=== PATIENT | male | born 1955 | race Caucasian/White ===

== ENCOUNTER 2023-05-07 14:20 | Outpatient (AMB) | payer MEDICARE, OTHER, SELFPAY ==
--- NOTE | 2023-05-07 14:25 | HO.NEPHOV ---
HPI HPI Comments History of Present Illness Details I had the privilege of seeing Donny in follow-up of his hypertension. He monitors his blood pressure closely at home. He has no headache, visual disturbances, chest pain, shortness of breath, paroxysmal nocturnal dyspnea, orthopnea, pedal edema or orthostatic symptoms. He is compliant with his medications. He has not had any gout exacerbations. He had no recent medication changes either. He did not have any other systemic symptoms at the time of this office visit. [facility] Medical History (Updated 05/14/23 @ 15:34 by Catracho Verma MD) Hypertension Surgical History (Updated 05/07/23 @ 14:34 by Anju Galindo MA) History of tonsillectomy Family History (Updated 05/07/23 @ 14:35 by Anju Galindo MA) Father Stroke Mother Heart attack Social History (Updated 05/07/23 @ 14:34 by Anju Galindo MA) Alcohol intake: current Patient Tobacco Use Status: Former Tobacco user Vital Signs 05/07/23 14:29 Height 6 ft Weight 220 lb 4 oz BMI 29.9 BP 130/70 Blood Pressure Location Rt brachial Position Sitting Pulse 85 Pulse Source Pulse Oximeter Pulse Oximetry (%) 98 Oxygen Delivery Method Room Air Physical Exam Vital Signs: Last Vital Signs Pulse 85 05/07/23 14:29 BP 130/70 05/07/23 14:29 Pulse Ox 98 05/07/23 14:29 Oxygen Delivery Method Room Air 05/07/23 14:29 BMI result Body Mass Index 29.9 Const General: comfortable and no acute distress Orientation/consciousness: patient oriented x3 HEENT Head: Yes normocephalic Mouth: Normal oral and palatal mucosa present Eyes EOM: EOMs intact bilaterally Neck Neck: Yes supple Resp Auscultation: clear to auscultation bilaterally Cardio Jugular venous distension: no JVD Rate: regular rate GI Palpation (GI): Soft to palpation Auscultation: normal bowel sounds General: Yes no CVA tenderness Back/Spine/Pelvis Back: no CVA tenderness Skin General skin exam: no rashes or lesions noted Neuro General: patient oriented x3 and moves all extremities Extrem General: Yes no pedal edema Assessment & Plan Assessment & Plan (1) Hypertension: Code(s): I10 - Essential (primary) hypertension Qualifiers: Hypertension type: primary hypertension Qualified Code(s): I10 - Essential (primary) hypertension Plan Donny has longstanding hypertension and is currently well controlled on current medication regimen. He is tolerating JASMYNE inhibitor well. He maintains a low-sodium diet and is fairly active. His last renal ultrasound along with Doppler of renal arteries were unremarkable. He could continue on the current dose of chlorthalidone, lisinopril and metoprolol. He should maintain good hydration. I have ordered renal functions, electrolytes and uric acid. Medications refilled. All questions answered. Follow-up given. Orders: Orders Blood Urea Nitrogen 05/07/23 I10 - Essential (primary) hypertension Creatinine 05/07/23 I10 - Essential (primary) hypertension Uric Acid 05/07/23 I10 - Essential (primary) hypertension Electrolytes 8 Months I10 - Essential (primary) hypertension Calcium 05/07/23 I10 - Essential (primary) hypertension Electrolytes 05/07/23 I10 - Essential (primary) hypertension Creatinine 8 Months I10 - Essential (primary) hypertension Blood Urea Nitrogen 8 Months I10 - Essential (primary) hypertension Medications: New allopurinol 100 mg PO DAILY 90 days 90 tabs 3RF chlorthalidone 25 mg PO DAILY 90 days 90 tabs 3RF lisinopril 20 mg PO DAILY 90 days 90 tabs 3RF metoprolol succinate ER 25 mg PO DAILY 90 days 90 tabs 3RF allopurinol 300 mg (3 x 100 mg) PO DAILY 90 days 270 tabs 3RF Coding Level of Care Code Est Pt Level 4 (59094) Diagnoses Primary hypertension I10 Hypertension type: primary hypertension Results Reviewed Nephrology Results: Sodium 138 MMOL/L (135-145) 05/17/19 Potassium 5.2 MMOL/L (3.3-5.1) H 05/17/19 Chloride 103 MMOL/L (96-108) 05/17/19 BUN 17 MG/DL (9-16) H 05/17/19 Creatinine 1.02 MG/DL (0.5-1.4) 05/17/19 Calcium 9.9 MG/DL (8.4-10.2) 05/17/19 Phosphorus 3.7 MG/DL (2.7-4.5) 05/17/19 Urine Protein NEG (NEG - TRACE) 05/17/19
[2023-05-07 14:29] VITALS: BP 130/70; PULSE 85; O2SAT 98; BMI 29.9
== END 2023-05-07 15:11 | disposition home or self-care (01) ==
PROVIDERS: Visit Provider Internal Medicine Nephrology
DX: I10 Essential (primary) hypertension (principal)
CPT/HCPCS: 99214

== ENCOUNTER → 2023-05-07 14:20 | Outpatient (BNVA) | payer MEDICARE, OTHER, SELFPAY | PROVIDERS: Visit Provider Internal Medicine Nephrology | DX: I10 Essential (primary) hypertension (principal); Z79.899 Other long term (current) drug therapy | CPT/HCPCS: 99212 ==

== ENCOUNTER 2023-12-22 14:50 | Outpatient (AMB) | payer MEDICARE, OTHER, SELFPAY ==
--- NOTE | 2023-12-22 15:01 | HO.NEPHOV_ITS ---
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 He monitors his blood pressure closely at home. He has no headache, visual disturbances, chest pain, shortness of breath, paroxysmal nocturnal dyspnea, orthopnea, pedal edema or orthostatic symptoms. He is compliant with his medications. He has not had any gout exacerbations. He had no recent medication changes either. He did not have any other systemic symptoms at the time of this office visit. [facility] Medical History (Updated 12/23/23 @ 12:59 by Catracho Verma MD) Hypertension Surgical History History of tonsillectomy Family History Father Stroke Mother Heart attack Social History Alcohol intake: current Patient Tobacco Use Status: Former Tobacco user Review of Systems Const All systems reviewed & are unremarkable except as noted in HPI and below Physical Exam Vital Signs: Last Vital Signs Pulse 74 12/22/23 15:03 BP 120/62 12/22/23 15:03 Pulse Ox 97 12/22/23 15:03 Oxygen Delivery Method Room Air 12/22/23 15:03 BMI result Body Mass Index 29.3 Const General: comfortable and no acute distress Orientation/consciousness: patient oriented x3 HEENT Head: Yes normocephalic Mouth: Normal oral and palatal mucosa present Eyes EOM: EOMs intact bilaterally Neck Neck: Yes supple Resp Auscultation: clear to auscultation bilaterally Cardio Jugular venous distension: no JVD Rate: regular rate GI Palpation (GI): Soft to palpation Auscultation: normal bowel sounds General: Yes no CVA tenderness Back/Spine/Pelvis Back: no CVA tenderness Skin General skin exam: no rashes or lesions noted Neuro General: patient oriented x3 and moves all extremities Extrem General: Yes no pedal edema Assessment & Plan Assessment & Plan (1) Hypertension: Code(s): I10 - Essential (primary) hypertension Category: Medical Qualifiers: Hypertension type: primary hypertension Qualified Code(s): I10 - Essential (primary) hypertension (2) Hyperuricemia: Code(s): E79.0 - Hyperuricemia without signs of inflammatory arthritis and tophaceous disease Category: Medical Plan Donny has longstanding hypertension and is currently well controlled on current medication regimen. He is tolerating JASMYNE inhibitor well. He maintains a low- sodium diet and is fairly active. His last renal ultrasound along with Doppler of renal arteries were unremarkable. He could continue on the current dose of chlorthalidone, lisinopril and metoprolol. He should maintain good hydration. I have ordered renal functions, electrolytes and uric acid. Medications refilled. All questions answered. Follow-up given. Orders: Orders Creatinine 12/22/23 I10 - Essential (primary) hypertension Blood Urea Nitrogen 12/22/23 I10 - Essential (primary) hypertension Electrolytes 12/22/23 I10 - Essential (primary) hypertension Calcium 12/22/23 I10 - Essential (primary) hypertension Uric Acid Today E79.0 - Hyperuricemia without signs of inflammatory arthritis and tophaceous disease Coding Level of Care Code Est Pt Level 4 (31593) Diagnoses Primary hypertension I10 Hypertension type: primary hypertension Hyperuricemia E79.0
[2023-12-22 15:03] VITALS: BP 120/62; PULSE 74; O2SAT 97; BMI 29.3
== END 2023-12-22 15:22 | disposition home or self-care (01) ==
PROVIDERS: Visit Provider Internal Medicine Nephrology
DX: I10 Essential (primary) hypertension (principal); E79.0 Hyperuricemia without signs of inflammatory arthritis and tophaceous disease
CPT/HCPCS: 99214

== ENCOUNTER → 2023-12-22 14:50 | Outpatient (BNVA) | payer MEDICARE, OTHER, SELFPAY | PROVIDERS: Visit Provider Internal Medicine Nephrology | DX: I10 Essential (primary) hypertension (principal); E79.0 Hyperuricemia without signs of inflammatory arthritis and tophaceous disease | CPT/HCPCS: 99212 ==

== ENCOUNTER 2024-08-30 10:31 | Outpatient (AMB) | payer MEDICARE, OTHER, SELFPAY ==
--- NOTE | 2024-08-30 10:53 | HO.NEPHOV ---
Vital Signs 08/30/24 10:58 Height 6 ft Weight 213 lb 6 oz BMI 28.9 BP 132/80 Blood Pressure Location Lt brachial Position Sitting Pulse 81 Pulse Source Pulse Oximeter Pulse Oximetry (%) 98 Oxygen Delivery Method Room Air Intake Visit Reasons: Sooner appt per [place] Nitroglycerin Neutralizer Required: No Accompanied by: Self / Same As Patient Allergies No Known Allergies Allergy (Verified 08/30/24 10:58) HPI Comments Details: Donny was seen in follow-up of his hypertension, recent BENNY and hyperkalemia. He has been having intermittent dizziness with rise in serum K and creatinine. His dizziness has resolved with cutting back on HCTZ and ACEI. He monitors his blood pressure closely at home. He has no headache, visual disturbances, chest pain, shortness of breath, paroxysmal nocturnal dyspnea, orthopnea, pedal edema.He has not had any gout exacerbations and denies taking NSAID's. He has a new diagnosis of enlarged prostate with high PSA.He did not have any other systemic symptoms at the time of this office visit. [facility] Medical History (Updated 08/30/24 @ 22:23 by Catracho Verma MD) Hypertension Surgical History (Updated 08/30/24 @ 10:56 by Anju Galindo MA) H/O tooth extraction H/O eye surgery History of tonsillectomy Family History (Updated 08/30/24 @ 10:56 by Anju Galindo MA) Father Stroke Mother Heart attack Solitary kidney, acquired Social History Alcohol intake: current Patient Tobacco Use Status: Former Tobacco user Review of Systems Const All systems reviewed & are unremarkable except as noted in HPI and below Physical Exam Vital Signs: Last Vital Signs Pulse 81 08/30/24 10:58 BP 132/80 08/30/24 10:58 Pulse Ox 98 08/30/24 10:58 Oxygen Delivery Method Room Air 08/30/24 10:58 BMI result Body Mass Index 28.9 Const General: comfortable and no acute distress Orientation/consciousness: patient oriented x3 HEENT Head: Yes normocephalic Mouth: Normal oral and palatal mucosa present Eyes EOM: EOMs intact bilaterally Neck Neck: Yes supple Resp Auscultation: clear to auscultation bilaterally Cardio Jugular venous distension: no JVD Rate: regular rate GI Palpation (GI): Soft to palpation Auscultation: normal bowel sounds General: Yes no CVA tenderness Back/Spine/Pelvis Back: no CVA tenderness Skin General skin exam: no rashes or lesions noted Neuro General: patient oriented x3 and moves all extremities Extrem General: Yes no pedal edema Results Reviewed Nephrology Results: Hgb 14.0 g/dl (14.0-18.0) 08/30/24 WBC 9.0 X10*3/uL (4.8-10.8) 08/30/24 Plt Count 270 X10*3/uL (160-400) 08/30/24 Sodium 138 mmol/L (135-145) 08/30/24 Potassium 4.7 mmol/L (3.3-5.1) 08/30/24 Chloride 106 mmol/L (96-108) 08/30/24 Carbon Dioxide 24 mmol/L (22-29) 08/30/24 BUN 34 mg/dL (9-16) H 08/30/24 Creatinine 1.37 mg/dL (0.5-1.4) 08/30/24 Calcium 9.9 mg/dL (8.4-10.2) 08/30/24 Phosphorus 3.7 MG/DL (2.7-4.5) 05/17/19 Urine Protein Negative mg/dL (Neg-Trace) 08/30/24 Urine Creatinine 100.79 mg/dL 08/30/24 Protein/Creatinin Ratio 0.09 (<0.2) 08/30/24 Assessment & Plan Assessment & Plan (1) Hypertension: Code(s): I10 - Essential (primary) hypertension Category: Medical Qualifiers: Hypertension type: primary hypertension Qualified Code(s): I10 - Essential (primary) hypertension (2) Hyperuricemia: Code(s): E79.0 - Hyperuricemia without signs of inflammatory arthritis and tophaceous disease Category: Medical (3) BENNY (acute kidney injury): Code(s): N17.9 - Acute kidney failure, unspecified Category: Medical (4) Hyperkalemia: Code(s): E87.5 - Hyperkalemia Category: Medical Plan Donny has longstanding hypertension and may be having mild CKD from it. He recently developed BENNY with hyperkalemia associated with dizziness. He likely had tubular injury. His dizziness has resolved since his HCTZ dose and ACEI dose has been adjusted. Given rise in PSA, we need to R/O hydro . He also needs evaluation of renal arteries. I ordered imaging studies and follow up labs today. He maintains a low-sodium diet and is fairly active. He should maintain good hydration.Further management is pending evolving data. All questions answered. Follow-up given. Orders: Orders Complete Blood Count Auto Diff Today E79.0 - Hyperuricemia without signs of inflammatory arthritis and tophaceous disease, I10 - Essential (primary) hypertension, N17.9 - Acute kidney failure, unspecified Creatinine Today E79.0 - Hyperuricemia without signs of inflammatory arthritis and tophaceous disease, I10 - Essential (primary) hypertension, N17.9 - Acute kidney failure, unspecified Protein Creatinine Ratio, Ur Today E79.0 - Hyperuricemia without signs of inflammatory arthritis and tophaceous disease, I10 - Essential (primary) hypertension, N17.9 - Acute kidney failure, unspecified Ferritin Today E79.0 - Hyperuricemia without signs of inflammatory arthritis and tophaceous disease, I10 - Essential (primary) hypertension, N17.9 - Acute kidney failure, unspecified IRON PROFILE Today E79.0 - Hyperuricemia without signs of inflammatory arthritis and tophaceous disease, I10 - Essential (primary) hypertension, N17.9 - Acute kidney failure, unspecified Electrolytes Today E79.0 - Hyperuricemia without signs of inflammatory arthritis and tophaceous disease, I10 - Essential (primary) hypertension, N17.9 - Acute kidney failure, unspecified Calcium Today E79.0 - Hyperuricemia without signs of inflammatory arthritis and tophaceous disease, I10 - Essential (primary) hypertension, N17.9 - Acute kidney failure, unspecified Blood Urea Nitrogen Today E79.0 - Hyperuricemia without signs of inflammatory arthritis and tophaceous disease, I10 - Essential (primary) hypertension, N17.9 - Acute kidney failure, unspecified Immunofixation Pnl, Serum Today E79.0 - Hyperuricemia without signs of inflammatory arthritis and tophaceous disease, I10 - Essential (primary) hypertension, N17.9 - Acute kidney failure, unspecified UA and rflx microscopic Today E79.0 - Hyperuricemia without signs of inflammatory arthritis and tophaceous disease, I10 - Essential (primary) hypertension, N17.9 - Acute kidney failure, unspecified ANCA Vasculitides Today E79.0 - Hyperuricemia without signs of inflammatory arthritis and tophaceous disease, I10 - Essential (primary) hypertension, N17.9 - Acute kidney failure, unspecified US renal doppler Today N17.9 - Acute kidney failure, unspecified US renal BI Today I10 - Essential (primary) hypertension, N17.9 - Acute kidney failure, unspecified Coding Level of Care Code Est Pt Level 4 (16486) Diagnoses Primary hypertension I10 Hypertension type: primary hypertension Hyperuricemia E79.0 BENNY (acute kidney injury) N17.9 Hyperkalemia E87.5
[2024-08-30 10:58] VITALS: BP 132/80; PULSE 81; O2SAT 98; BMI 28.9
--- OUTSIDE RECORDS SUMMARY | 2024-08-30 12:01 | XMS_ITS | Clinical Summary ---
Author Organization [facility] Address [address] [place] [address] Phone Care Team Providers Care Trauma Coordinator Name Role Phone Madison Perez Primary Care Provider [phone] Allergies No known active allergies Medications allopurinol (ZYLOPRIM) 100 MG tablet Take 2 tablets by mouth 1 (one) time each day Active lisinopril 20 MG tablet Take 1 tablet by mouth daily. 90 tablet 07/21/2021 Active metoprolol succinate XL (TOPROL XL) 25 MG 24 hr tablet Take 1 tablet by mouth once daily. Replaces 50 mg. 90 tablet 1 09/28/2022 Active brimonidine (ALPHAGAN) 0.2 % ophthalmic solution 08/27/2022 Active chlorthalidone 25 MG tablet Take 1 tablet by mouth once daily. 90 tablet 3 11/10/2022 Active Active Problems Problem Noted Date Diagnosed Date Essential hypertension 05/06/2021 Family History Medical History Relation Comments Hypertension Father Stroke Father Gout Mother Heart disease Mother Hypertension Mother Relation Status Comments Father Mother Social History Tobacco Use Types Packs/Day Years Used Date Smoking Tobacco: Never Smokeless Tobacco: Never Tobacco Cessation:Counseling Given: Not Answered Alcohol Use Standard Drinks/Week Comments Yes 0 (1 standard drink = 0.6 oz pure alcohol) Alcoholic Drinks/day: Occasional social drink Sex and Gender Information Value Date Recorded Sex Assigned at Not on file Legal Sex Male 5:07 PM EST Gender Identity Not on file Sexual Orientation Not on file Last Filed Vital Signs Vital Sign Reading Time Taken Comments Blood Pressure 110/70 10/07/2022 3:42 PM EDT Pulse 74 10/07/2022 3:42 PM EDT Temperature - - Respiratory Rate - - Oxygen Saturation 98% 10/01/2021 4:26 PM EDT Inhaled Oxygen Concentration - - Weight 98.4 kg (217 lb) 10/07/2022 3:42 PM EDT Height 182.9 cm (6') 05/17/2020 12:00 PM EST Body Mass Index 29.43 05/17/2020 12:00 PM EST Plan of Treatment Health Maintenance Due Date Last Done Comments Pneumococcal Vaccine: 50+ Ye ars (1 of 2 - PCV) 07/26/1975 Colorectal Cancer Screening: Annual FOBT 2005 Colorectal Cancer Screening: Colonoscopy 2005 Colorectal Cancer Screening: Sigmoidoscopy 2005 Influenza Vaccine (Season Ended) 2024 Hepatitis B Vaccine Aged Out No longe r eligible based on patient's age to complete this topic Insurance [facility] Medicare [facility] Medicare Care Teams Trauma Coordinator Relationship Specialty Start Date End Date Madison Perez [address] [place] [id number] PCP - General 10/01/21
--- OUTSIDE RECORDS SUMMARY | 2024-08-30 12:01 | XMS_ITS | Data Portability ---
Author Organization [facility], , [facility] Address [address] [place] [address] Care Team Providers Care Speech Therapist Early Intervention Name Role Phone ROMY MIN [employer] Customer Experience Associate CASSIE AGUILAR Primary Care Provider Assessment Encounter Date Assessment Date Assessment LastModified by Organization Details LastModified Time 03/23/2022 03/23/2022 After a discussion of treatment options, which included consideration of best practices and patient preferences, the following treatment plan and objectives were adopted: Not available 03/29/2022 18:49:28 09/30/2022 09/30/2022 After a discussion of treatment options, which included consideration of best practices and patient preferences, the following treatment plan and objectives were adopted: Not available 10/07/2022 08:48:15 05/16/2024 05/16/2024 We completed your Medicare Wellness exam today. This was an opportunity to assess your overall well being including your ability to care for yourself, your mobility, memory, mental health, as well as your safety. With advancing age, it is important to assign someone in your life as your Health Care Proxy (HCP). This person should know what is important to you and what your wishes are for medical procedures if you cannot communicate your wishes yourself (severe illness, unconsciousness) . We discussed having a completed Health Care Proxy form today. In addition, today we started a conversation about your End of Life wishes. These conversations will continue over the years. Please consider reading the book, Being Mortal by Mike Dobbs to help frame future conversations. We discussed the purpose of a MOLST form (Medical Orders for Life Sustaining Treatment) and completed this form if appropriate per your wishes. Vision and Hearing are senses that are critically important as we age. When impaired, they can contribute to memory loss, falls, and make it harder to drive, talk to family and friends, and engage in the world. Please get your vision checked yearly and your hearing checked when you start to notice hearing loss. We discussed approaches to lowering your risk of heart disease and stroke . Your blood pressure is at goal. Your cholesterol is higher than goal, work on eating more fruits and vegetables and avoiding saturated fats. We discussed cancer screening you may need as well as vaccines to prevent infections. Colon Cancer : Your risk of colon cancer is average. Due for colorectal screenin. If you are not planning to Prostate Cancer : PSA testing for ages 55-69 risks and benefits discussed test ordered. Influenza Vaccine : Flu shot yearly. Tetanus Vaccine : Every 10 years. Due: 2025. The following vaccines are available from your pharmacy: Pneumonia Vaccine : PCV20: once after age 65. Shingles Vaccine : 2 shots after age 50. Covid Vaccine : Make sure you have received the most up to date covid vaccine. [email or web address] Not available 05/17/2024 09:10:19 08/15/2024 08/15/2024 We reviewed your chronic medical conditions and updated your plan for management. Please review instructions below. We have discussed your personal goals and discussed how to reach your goals. Please reach out to us via the Portal or phone if you have questions about your chronic conditions or if you or your caregivers require assistance in meeting your goals. Please visit our website [email or web address] for more patient resources. As part of your care plan, we will help coordinate your ongoing medical needs, arrange for durable medical equipment, renew prescriptions and necessary prior authorizations, facilitate getting referrals and collaborating with specialist, referrals for VNA services. [email or web address] Not available 08/15/2024 08:58:30 Plan of Treatment Reminders Order Date Submit Date Provider Last Modified By Organization Details Last Modified Time Details Appointments LAB Follow-Up 2024 08:35A M [facility] Lab Not available Not available Not available [place] [facility], 15 2024 10:30A M Romy Min MD Not available Not available Not available [facility] t 30 2024 08:30A M PARASH PIJAR, DNP Not available Not available Not available Lab uric acid, serum or plasma 2024 025 [facility], [address] [place] [address], [id number], 08/15/2024 14:58:18 lipid panel, serum 2024 [facility], [address] [place] [address], [id number], 08/15/2024 08:58:59 CMP, serum or plasma 2024 025 [facility], [address] [place] [address], [id number], 08/15/2024 14:58:17 CMP, serum or plasma 2024 025 [facility], [address] [place] [address], [id number], 08/09/2024 11:56:42 PSA, serum or plasma 2024 025 [facility], [address] [place] [address], [id number], 08/09/2024 10:40:16 uric acid, serum or plasma 2024 025 [facility], [address] [place] [address], [id number], 08/09/2024 11:56:43 lipid panel, serum 2024 025 [facility], [address] [place] [address], [id number], 08/09/2024 11:56:43 Referral None recorded. Procedures None recorded. Surgeries None recorded. Imaging US, abdominal aorta 2021 023 [facility] (Im[facility]), [address], [place], [id number], 04/21/2022 09:23:34 Medication Orders atorvasta tin 20 mg tablet 2024 025 [facility], [address], [place], [place], [id number], 05/16/2024 12:09:04 sildenafi l 50 mg tablet 2023 024 [facility], [address], [place], [place], [id number], 11/16/2023 13:40:46 Patient TargetsNo targets recorded. Patient Instructions Encounter Date Encounter Id Patient Instructions Last Modified By Organization Details Last Modified Time 03/23/2022 [id number] high cholesterol lifestyle changes Not available 03/29/2022 18:49:45 preventing falls : care instructions Not available 03/29/2022 18:49:45 hearing loss: care instructions Not available 03/29/2022 18:49:45 advance directives: care instructions Not available 03/29/2022 18:49:45 well visit, over 65: care instructions Not available 03/29/2022 18:49:45 Prostate Cancer Screening using PSA was discussed. The U.S. Preventive Services Task Force advises not to make a PSA test a part of the standard exam for men ages 55-69. Instead they recommend the uncertainties about the test be discussed and ordered only if a patient still wants it. Over their lifetimes as many as 50% or more of men will develop prostate cancer but only 2% of men will of prostate cancer. For men who chose to be screened for prostate cancer if 1000 men are screened with a psa test over a 15 year period there might be 1-2 deaths prevented however 235 men will have a biopsy with risk of infection, bleeding and Pain, 100 men will have their prostate removed by surgery or radiation treatments and 60-70 of those will suffer incontinence or impotence. There is also the risk of anesthesia or radiation complications. For men over 70 prostate cancer screening offered no benefit and risked pain, worry, expense and possibly shorter life expectancy. [email or web address] Not available 03/23/2022 09:13:01 09/30/2022 [id number] Prostate Cancer Screening using PSA was discussed. The U.S. Preventive Services Task Force advises not to make a PSA test a part of the standard exam for men ages 55-69. Instead they recommend the uncertainties about the test be discussed and ordered only if a patient still wants it. Over their lifetimes as many as 50% or more of men will develop prostate cancer but only 2% of men will of prostate cancer. For men who chose to be screened for prostate cancer if 1000 men are screened with a psa test over a 15 year period there might be 1-2 deaths prevented however 235 men will have a biopsy with risk of infection, bleeding and Pain, 100 men will have their prostate removed by surgery or radiation treatments and 60-70 of those will suffer incontinence or impotence. There is also the risk of anesthesia or radiation complications. For men over 70 prostate cancer screening offered no benefit and risked pain, worry, expense and possibly shorter life expectancy. [email or web address] Not available 09/30/2022 15:31:18 05/16/2024 [id number] well visit, over 65: care instructions [email or web address] Not available 05/17/2024 09:11:33 08/15/2024 [id number] CCM: The provider and patient discussed the Chronic Care Management program, including the services provided, and any fees associated with them. [email or web address] Not available 08/29/2024 09:00:14 Reason for Referral None Reported. Results Created Date Observation Date Name Description Value Unit Range Abnormal Flag Note LastModifiedBy Organization Detail LastModifiedTime 03/19/20 22 03/20/2022 HGB A1C hemoglobin A1C 5.7 % 4.8-6. 0 Goal: <7% in Patie nts with Diabe josiane An A1c betwe en 5.7-6 .4% is ident ified as pre-d iabet es and sugge sts risk for progr essio n to diabe josiane Two a1c value s of 6.5% or highe r is consi stent with a diagn osis of diabe josiane but may need furth er confi rmati on Not Available [facility] [address], [place], [address], 03/20/2022 09:44:50 03/19/20 22 03/20/2022 HGB A1C estimated average glucose 116.9 mg/dL Not Available [address], [address], 03/20/2022 09:44:50 03/19/20 22 03/20/2022 MICRO ALBUM IN/CR EATIN INE RATIO PANEL , URINE microalbumin 6.9 mg/L 1.3-20 .0 Not Available [address], [address], 03/20/2022 13:14:40 03/19/20 22 03/20/2022 MICRO ALBUM IN/CR EATIN INE RATIO PANEL , URINE creatinine urine 112.0 mg/dL 30.0-1 25.0 Not Available [address], [address], 03/20/2022 13:14:40 03/19/20 22 03/20/2022 MICRO ALBUM IN/CR EATIN INE RATIO PANEL , URINE microalb/cre at ratio 6.2 mg/g_ creat 0.0-29 .0 Not Available [address], [address], 03/20/2022 13:14:40 03/19/20 22 03/23/2022 COMP. METAB OLIC PANEL glucose 88 mg/dL 70-100 Not Available [address], [address], 03/23/2022 10:26:00 03/19/20 22 03/23/2022 COMP. METAB OLIC PANEL BUN 34 mg/dL 7-18 high Not Available [address], [address], 03/23/2022 10:26:00 03/19/20 22 03/23/2022 COMP. METAB OLIC PANEL creatinine 1.3 mg/dL 0.8-1. 3 Not Available [address], [address], 03/23/2022 10:26:00 03/19/20 22 03/23/2022 COMP. METAB OLIC PANEL B/C 26.2 ratio Not Available [address], [address], 03/23/2022 10:26:00 03/19/20 22 03/23/2022 COMP. METAB OLIC PANEL GFR >=60ML /MIN mL/mi n normal >=60m L/min - Alfreda l or midly reduc ed <60mL /min- Decre ased kidne y funct ion <15mL /min - Kidne y failu re [facility] calcu lates estim ated Glome rular Filtr ation Rate (eGFR ) using the Chron ic Kidne y Disea se Epide miolo gy Colla borat ion (CKD- EPI) Equat ion (Chuck tay et. al 2020) as recom arlet d by the Natio nal Kidne y Found ation . eGFR is based on age, serum creat inine , and sex. CKD-E PI does not calcu late eGFR by race, does not apply to child jose martin (age <18 years ), and shoul d not be used in pregn giovanna. Not Available [address], [address], 03/23/2022 10:26:00 03/19/20 22 03/23/2022 COMP. METAB OLIC PANEL sodium 136 mmol/ L 136-14 5 Not Available [address], [address], 03/23/2022 10:26:00 03/19/20 22 03/23/2022 COMP. METAB OLIC PANEL potassium 4.8 mmol/ L 3.5-5. 1 Not Available [address], [address], 03/23/2022 10:26:00 03/19/20 22 03/23/2022 COMP. METAB OLIC PANEL chloride 99 mmol/ L 96-107 Not Available [address], [address], 03/23/2022 10:26:00 03/19/20 22 03/23/2022 COMP. METAB OLIC PANEL anion gap 6.5 5.0-15 .0 Not Available [address], [address], 03/23/2022 10:26:00 03/19/20 22 03/23/2022 COMP. METAB OLIC PANEL CO2 31 mmol/ L 21-32 Not Available [address], [address], 03/23/2022 10:26:00 03/19/20 22 03/23/2022 COMP. METAB OLIC PANEL calcium 9.5 mg/dL 8.5-10 .3 Not Available [address], [address], 03/23/2022 10:26:00 03/19/20 22 03/23/2022 COMP. METAB OLIC PANEL total protein 6.8 g/dL 6.4-8. 2 Not Available [address], [address], 03/23/2022 10:26:00 03/19/20 22 03/23/2022 COMP. METAB OLIC PANEL albumin 4.3 g/dL 3.4-5. 0 Not Available [address], [address], 03/23/2022 10:26:00 03/19/20 22 03/23/2022 COMP. METAB OLIC PANEL globulin 2.5 g/dL Not Available [address], [address], 03/23/2022 10:26:00 03/19/20 22 03/23/2022 COMP. METAB OLIC PANEL A/G 1.7 ratio 0.8-2. 0 Not Available [address], [address], 03/23/2022 10:26:00 03/19/20 22 03/23/2022 COMP. METAB OLIC PANEL total bilirubin 0.60 mg/dL 0.00-1 .00 Not Available [address], [address], 03/23/2022 10:26:00 03/19/20 22 03/23/2022 COMP. METAB OLIC PANEL AST 31 U/L 0-37 Not Available [address], [address], 03/23/2022 10:26:00 03/19/20 22 03/23/2022 COMP. METAB OLIC PANEL ALT 35 U/L 6-63 Not Available [address], [address], 03/23/2022 10:26:00 03/19/20 22 03/23/2022 COMP. METAB OLIC PANEL alk. phos. 81 U/L 50-136 Not Available [address], [address], 03/23/2022 10:26:00 03/19/20 22 03/23/2022 LIPID PANEL cholesterol 183 mg/dL <200 mg/dl Aminah able 200-2 39 mg/dl Borde rline High >240 mg/dl High Not Available [address], [address], 03/23/2022 10:26:01 03/19/20 22 03/23/2022 LIPID PANEL triglyceride s 173 mg/dL <150 mg/dL Alfreda l 150-1 99 mg/dL Borde rline High 200-4 99 mg/dL High >500 mg/dL Very High Not Available [address], [address], 03/23/2022 10:26:01 03/19/20 22 03/23/2022 LIPID PANEL direct HDL 47 mg/dL <40 mg/dl - Major Risk for CHD >60 mg/dl - Negat re Risk for CHD Not Available [address], [address], 03/23/2022 10:26:01 03/19/20 22 03/23/2022 URIC ACID uric acid 7.2 mg/dL 3.5-7. 2 Not Available [address], [address], 03/23/2022 10:26:02 03/19/20 22 03/23/2022 LDL - CALCU LATED LDL - calculated 101.4 RISK CATEG ORY LDL GOAL _ CHD or CHD Risk Equiv alent s <100 mg/dl (10-y ear risk >20%) 2+ Risk Facto rs <130 mg/dl (10-y ear risk <= 20%) 0-1 Risk Facto r? <160 mg/dl ? Almos t all peopl e with 0-1 risk facto r have a 10 year risk <10%, thus 10 year risk asses ment in peopl e with 0-1 risk facto r is not connor katheryn. Not Available [address], [address], 03/23/2022 10:26:03 09/19/19 23 09/18/2022 RENAL PANEL glucose 115 mg/dL 70-100 high Not Available [address], [address], 09/18/2022 15:07:30 09/19/19 23 09/18/2022 RENAL PANEL BUN 27 mg/dL 7-18 high Not Available [address], [address], 09/18/2022 15:07:30 09/19/19 23 09/18/2022 RENAL PANEL creatinine 1.3 mg/dL 0.8-1. 3 Not Available [address], [address], 09/18/2022 15:07:30 09/19/19 23 09/18/2022 RENAL PANEL B/C 20.8 ratio Not Available [address], [address], 09/18/2022 15:07:30 09/19/19 23 09/18/2022 RENAL PANEL GFR >=60ML /MIN mL/mi n normal >=60m L/min - Alfreda l or midly reduc ed <60mL /min- Decre ased kidne y funct ion <15mL /min - Kidne y failu re [facility] calcu lates estim ated Glome rular Filtr ation Rate (eGFR ) using the Chron ic Kidne y Disea se Epide miolo gy Colla borat ion (CKD- EPI) Equat ion (Chuck r et. al 2020) as recom arlet d by the Natio nal Kidne y Found ation . eGFR is based on age, serum creat inine , and sex. CKD-E PI does not calcu late eGFR by race, does not apply to child jose martin (age <18 years ), and shoul d not be used in pregn giovanna. Not Available [address], [address], 09/18/2022 15:07:30 09/19/19 23 09/18/2022 RENAL PANEL sodium 138 mmol/ L 136-14 5 Not Available [address], [address], 09/18/2022 15:07:30 09/19/19 23 09/18/2022 RENAL PANEL potassium 5.1 mmol/ L 3.5-5. 1 Not Available [address], [address], 09/18/2022 15:07:30 09/19/19 23 09/18/2022 RENAL PANEL chloride 101 mmol/ L 96-107 Not Available [address], [address], 09/18/2022 15:07:30 09/19/19 23 09/18/2022 RENAL PANEL anion gap 10.4 5.0-15 .0 Not Available [address], [address], 09/18/2022 15:07:30 09/19/19 23 09/18/2022 RENAL PANEL CO2 27 mmol/ L 21-32 Not Available [address], [address], 09/18/2022 15:07:30 09/19/19 23 09/18/2022 RENAL PANEL calcium 9.3 mg/dL 8.5-10 .3 Not Available [address], [address], 09/18/2022 15:07:30 09/19/19 23 09/18/2022 RENAL PANEL albumin 4.2 g/dL 3.4-5. 0 Not Available [address], [address], 09/18/2022 15:07:30 09/19/19 23 09/18/2022 RENAL PANEL phosphorous 3.20 mg/dL 2.50-4 .90 Not Available [address], [address], 09/18/2022 15:07:30 09/19/19 23 09/19/2022 PROTE IN, TOTAL W/CRE AT, RANDO M URINE creatinine, random urine 89 mg/dL 20-320 normal Not Available [facility] [address], [address], 09/19/2022 19:37:30 09/19/19 23 09/19/2022 PROTE IN, TOTAL W/CRE AT, RANDO M URINE protein/crea tinine ratio 124 mg/g_ creat 25-148 normal Not Available [facility] [address], [address], 09/19/2022 19:37:30 09/19/19 23 09/19/2022 PROTE IN, TOTAL W/CRE AT, RANDO M URINE protein/crea tinine ratio 0.124 mg/mg _crea t 0.025- 0.148 normal Not Available [facility] [place] [facility] [address], [place], [address], 09/19/2022 19:37:30 09/19/19 23 09/19/2022 PROTE IN, TOTAL W/CRE AT, RANDO M URINE protein, total, random ur 11 mg/dL 5-25 normal Not Available [facility] [place] [facility] [address], [place], [address], 09/19/2022 19:37:30 09/19/19 23 09/21/2022 LIPID PANEL cholesterol 205 mg/dL <200 mg/dl Aminah able 200-2 39 mg/dl Borde rline High >240 mg/dl High Not Available [address], [address], 09/21/2022 09:53:40 09/19/1909/21/2022 LIPID PANEL triglyceride s 273 mg/dL high <150 mg/dL Alfreda l 150-1 99 mg/dL Borde rline High 200-4 99 mg/dL High >500 mg/dL Very High Not Available [address], [address], 09/21/2022 09:53:40 09/19/1909/21/2022 LIPID PANEL direct HDL 44 mg/dL <40 mg/dl - Major Risk for CHD >60 mg/dl - Negat re Risk for CHD Not Available [address], [address], 09/21/2022 09:53:40 09/19/1909/21/2022 DIREC T LDL direct LDL 113 mg/dL RISK CATEG ORY LDL GOAL _ CHD or CHD Risk Equiv alent s <100 mg/dl (10-y ear risk >20%) 2+ Risk Facto rs <130 mg/dl (10-y ear risk <= 20%) 0-1 Risk Facto r? <160 mg/dl ? Almos t all peopl e with 0-1 risk facto r have a 10 year risk <10%, thus 10 year risk asses ment in peopl e with 0-1 risk facto r is not connor cernay. Not Available [address], [address], 09/21/2022 12:23:59 04/30/19 24 04/30/2023 HGB A1C hemoglobin A1C 6.0 % 4.8-6. 0 Goal: <7% in Patie nts with Diabe josiane An A1c betwe en 5.7-6 .4% is ident ified as pre-d iabet es and sugge sts risk for progr essio n to diabe josiane Two a1c value s of 6.5% or highe r is consi stent with a diagn osis of diabe josiane but may need furth er confi rmati on Not Available [address], [address], 04/30/2023 11:07:53 04/30/19 24 04/30/2023 HGB A1C estimated average glucose 125.5 mg/dL Not Available [address], [address], 04/30/2023 11:07:53 04/30/19 24 04/30/2023 BASIC METAB OLIC PANEL glucose 110 mg/dL 70-100 high Not Available [address], [address], 04/30/2023 14:12:23 04/30/19 24 04/30/2023 BASIC METAB OLIC PANEL BUN 28 mg/dL 7-18 high Not Available [address], [address], 04/30/2023 14:12:23 04/30/19 24 04/30/2023 BASIC METAB OLIC PANEL creatinine 1.4 mg/dL 0.8-1. 3 high Not Available [address], [address], 04/30/2023 14:12:23 04/30/19 24 04/30/2023 BASIC METAB OLIC PANEL B/C 20.0 ratio Not Available [address], [address], 04/30/2023 14:12:23 04/30/19 24 04/30/2023 BASIC METAB OLIC PANEL GFR 55.4 mL/mi n abnormal >=60m L/min - Alfreda l or midly reduc ed <60mL /min- Decre ased kidne y funct ion <15mL /min - Kidne y failu re [facility] calcu lates estim ated Glome rular Filtr ation Rate (eGFR ) using the Chron ic Kidne y Disea se Epide miolo gy Colla borat ion (CKD- EPI) Equat ion (Chuck tay et. al 2020) as recom arlet d by the Natio nal Kidne y Found ation . eGFR is based on age, serum creat inine , and sex. CKD-E PI does not calcu late eGFR by race, does not apply to child jose martin (age <18 years ), and shoul d not be used in pregn giovanna. Not Available [address], [address], 04/30/2023 14:12:23 04/30/19 24 04/30/2023 BASIC METAB OLIC PANEL sodium 136 mmol/ L 136-14 5 Not Available [address], [address], 04/30/2023 14:12:23 04/30/19 24 04/30/2023 BASIC METAB OLIC PANEL potassium 5.0 mmol/ L 3.5-5. 1 Not Available [address], [address], 04/30/2023 14:12:23 04/30/19 24 04/30/2023 BASIC METAB OLIC PANEL chloride 100 mmol/ L 96-107 Not Available [address], [address], 04/30/2023 14:12:23 04/30/19 24 04/30/2023 BASIC METAB OLIC PANEL anion gap 8.6 5.0-15 .0 Not Available [address], [address], 04/30/2023 14:12:23 04/30/19 24 04/30/2023 BASIC METAB OLIC PANEL CO2 27 mmol/ L 21-32 Not Available [address], [address], 04/30/2023 14:12:23 04/30/19 24 04/30/2023 BASIC METAB OLIC PANEL calcium 9.7 mg/dL 8.5-10 .3 Not Available [address], [address], 04/30/2023 14:12:23 04/30/19 24 04/30/2023 URIC ACID uric acid 6.1 mg/dL 3.5-7. 2 Not Available [address], [address], 04/30/2023 14:12:24 05/05/19 24 05/06/2023 PROTE IN, TOTAL W/CRE AT, RANDO M URINE creatinine, random urine 98 mg/dL 20-320 normal Not Available [facility] [address], [address], 05/06/2023 16:23:30 05/05/19 24 05/06/2023 PROTE IN, TOTAL W/CRE AT, RANDO M URINE protein/crea tinine ratio 112 mg/g_ creat 25-148 normal Not Available [facility] [address], [address], 05/06/2023 16:23:30 05/05/19 24 05/06/2023 PROTE IN, TOTAL W/CRE AT, RANDO M URINE protein/crea tinine ratio 0.112 mg/mg _crea t 0.025- 0.148 normal Not Available [facility] [address], [place], [address], 05/06/2023 16:23:30 05/05/19 24 05/06/2023 PROTE IN, TOTAL W/CRE AT, RANDO M URINE protein, total, random ur 11 mg/dL 5-25 normal Not Available [facility] [address], [place], [address], 05/06/2023 16:23:30 12/17/19 24 12/20/2023 ELECT ROLYT ES sodium 138 mmol/ L 136-14 5 Not Available [address], [address], 12/20/2023 12:35:55 12/17/19 24 12/20/2023 ELECT ROLYT ES potassium 4.7 mmol/ L 3.5-5. 1 Not Available [address], [address], 12/20/2023 12:35:55 12/17/19 24 12/20/2023 ELECT ROLYT ES chloride 102 mmol/ L 96-107 Not Available [address], [address], 12/20/2023 12:35:55 12/17/19 24 12/20/2023 ELECT ROLYT ES anion gap 10.0 5.0-15 .0 Not Available [address], [address], 12/20/2023 12:35:55 12/17/19 24 12/20/2023 ELECT ROLYT ES CO2 26 mmol/ L 21-32 Not Available [address], [address], 12/20/2023 12:35:55 12/17/19 24 12/20/2023 BUN BUN 25 mg/dL 7-18 high Not Available [address], [address], 12/20/2023 12:35:55 12/17/19 24 12/20/2023 CREAT ININE creatinine 1.4 mg/dL 0.8-1. 3 high Not Available [address], [address], 12/20/2023 12:35:55 12/17/19 24 12/20/2023 CREAT ININE GFR 55.1 mL/mi n abnormal >=60m L/min - Alfreda l or midly reduc ed <60mL /min- Decre ased kidne y funct ion <15mL /min - Kidne y failu re [facility] calcu lates estim ated Glome rular Filtr ation Rate (eGFR ) using the Chron ic Kidne y Disea se Epide miolo gy Colla borat ion (CKD- EPI) Equat ion (Chuck r et. al 2020) as recom arlet d by the Natio nal Kidne y Found ation . eGFR is based on age, serum creat inine , and sex. CKD-E PI does not calcu late eGFR by race, does not apply to child jose martin (age <18 years ), and shoul d not be used in pregn giovanna. Not Available [address], [address], 12/20/2023 12:35:55 12/17/1912/20/2023 CALCI UM calcium 9.1 mg/dL 8.5-10 .3 Not Available [address], [address], 12/20/2023 12:35:55 12/17/19 24 12/20/2023 URIC ACID uric acid 7.2 mg/dL 3.5-7. 2 Not Available [address], [address], 12/20/2023 12:35:56 03/23/20 24 03/28/2024 IMMUN OCHEM ICAL FECAL OCCUL T BLOOD ifobt POSITI VE negati ve positive Not Available [address], [address], 03/28/2024 11:48:12 05/09/19 25 05/09/2024 HGB A1C hemoglobin A1C 5.8 % 4.8-6. 0 Goal: <7% in Patie nts with Diabe josiane An A1c betwe en 5.7-6 .4% is ident ified as pre-d iabet es and sugge sts risk for progr essio n to diabe josiane Two a1c value s of 6.5% or highe r is consi stent with a diagn osis of diabe josiane but may need furth er confi rmati on Not Available [address], [address], 05/09/2024 10:42:56 05/09/1905/09/2024 HGB A1C estimated average glucose 119.8 mg/dL Not Available [address], [address], 05/09/2024 10:42:56 05/09/1905/10/2024 BASIC METAB OLIC PANEL glucose 119 mg/dL 70-100 high Not Available [address], [address], 05/10/2024 13:35:21 05/09/1905/10/2024 BASIC METAB OLIC PANEL BUN 40 mg/dL 7-18 high Not Available [address], [address], 05/10/2024 13:35:21 05/09/19 25 05/10/2024 BASIC METAB OLIC PANEL creatinine 1.6 mg/dL 0.8-1. 3 high Not Available [address], [address], 05/10/2024 13:35:21 05/09/19 25 05/10/2024 BASIC METAB OLIC PANEL B/C 25.0 ratio Not Available [address], [address], 05/10/2024 13:35:21 05/09/1905/10/2024 BASIC METAB OLIC PANEL GFR 46.9 mL/mi n abnormal >=60m L/min - Alfreda l or midly reduc ed <60mL /min- Decre ased kidne y funct ion <15mL /min - Kidne y failu re [facility] calcu lates estim ated Glome rular Filtr ation Rate (eGFR ) using the Chron ic Kidne y Disea se Epide miolo gy Colla borat ion (CKD- EPI) Equat ion (Chuck tay et. al 2020) as recom arlet d by the Natio nal Kidne y Found ation . eGFR is based on age, serum creat inine , and sex. CKD-E PI does not calcu late eGFR by race, does not apply to child jose martin (age <18 years ), and shoul d not be used in pregn giovanna. Not Available [address], [address], 05/10/2024 13:35:21 05/09/1905/10/2024 BASIC METAB OLIC PANEL sodium 139 mmol/ L 136-14 5 Not Available [address], [address], 05/10/2024 13:35:21 05/09/1905/10/2024 BASIC METAB OLIC PANEL potassium 5.0 mmol/ L 3.5-5. 1 Not Available [address], [address], 05/10/2024 13:35:21 05/09/1905/10/2024 BASIC METAB OLIC PANEL chloride 100 mmol/ L 96-107 Not Available [address], [address], 05/10/2024 13:35:21 05/09/1905/10/2024 BASIC METAB OLIC PANEL anion gap 11.9 5.0-15 .0 Not Available [address], [address], 05/10/2024 13:35:21 05/09/1905/10/2024 BASIC METAB OLIC PANEL CO2 27 mmol/ L 21-32 Not Available [address], [address], 05/10/2024 13:35:21 05/09/1905/10/2024 BASIC METAB OLIC PANEL calcium 10.1 mg/dL 8.5-10 .3 Not Available [address], [address], 05/10/2024 13:35:21 05/09/1905/10/2024 LIPID PANEL cholesterol 219 mg/dL <200 mg/dl Aminah able 200-2 39 mg/dl Borde rline High >240 mg/dl High Not Available [address], [address], 05/10/2024 13:35:22 05/09/19 25 05/10/2024 LIPID PANEL triglyceride s 252 mg/dL high <150 mg/dL Alfreda l 150-1 99 mg/dL Borde rline High 200-4 99 mg/dL High >500 mg/dL Very High Not Available [address], [address], 05/10/2024 13:35:22 05/09/1905/10/2024 LIPID PANEL direct HDL 49 mg/dL <40 mg/dl - Major Risk for CHD >60 mg/dl - Negat re Risk for CHD Not Available [address], [address], 05/10/2024 13:35:22 05/09/1905/10/2024 DIREC T LDL direct LDL 127 mg/dL RISK CATEG ORY LDL GOAL _ CHD or CHD Risk Equiv alent s <100 mg/dl (10-y ear risk >20%) 2+ Risk Facto rs <130 mg/dl (10-y ear risk <= 20%) 0-1 Risk Facto r? <160 mg/dl ? Almos t all peopl e with 0-1 risk facto r have a 10 year risk <10%, thus 10 year risk asses ment in peopl e with 0-1 risk facto r is not reievy campa. Not Available [address], [address], 05/10/2024 14:43:30 08/10/19 25 08/09/2024 PSA PSA 8.19 NG/mL 0.00-4 .00 high Not Available [address], [address], 08/09/2024 10:40:16 08/10/19 25 08/09/2024 COMP. METAB OLIC PANEL glucose 115 mg/dL 70-100 high Not Available [address], [address], 08/09/2024 11:56:42 08/10/19 25 08/09/2024 COMP. METAB OLIC PANEL BUN 52 mg/dL 7-18 high Not Available [address], [address], 08/09/2024 11:56:42 08/10/19 25 08/09/2024 COMP. METAB OLIC PANEL creatinine 1.7 mg/dL 0.8-1. 3 high Not Available [address], [address], 08/09/2024 11:56:42 08/10/19 25 08/09/2024 COMP. METAB OLIC PANEL B/C 30.6 ratio Not Available [address], [address], 08/09/2024 11:56:42 08/10/19 25 08/09/2024 COMP. METAB OLIC PANEL GFR 43.4 mL/mi n abnormal >=60m L/min - Alfreda l or midly reduc ed <60mL /min- Decre ased kidne y funct ion <15mL /min - Kidne y failu re [facility] calcu lates estim ated Glome rular Filtr ation Rate (eGFR ) using the Chron ic Kidne y Disea se Epide miolo gy Colla borat ion (CKD- EPI) Equat ion (Inke r et. al 2020) as recom arlet d by the Natio nal Kidne y Found ation . eGFR is based on age, serum creat inine , and sex. CKD-E PI does not calcu late eGFR by race, does not apply to child jose martin (age <18 years ), and shoul d not be used in pregn giovanna. Not Available [address], [address], 08/09/2024 11:56:42 08/10/19 25 08/09/2024 COMP. METAB OLIC PANEL sodium 138 mmol/ L 136-14 5 Not Available [address], [address], 08/09/2024 11:56:42 08/10/19 25 08/09/2024 COMP. METAB OLIC PANEL potassium 5.5 mmol/ L 3.5-5. 1 high no hemol ysis obser louis Not Available [address], [address], 08/09/2024 11:56:42 08/10/19 25 08/09/2024 COMP. METAB OLIC PANEL chloride 102 mmol/ L 96-107 Not Available [address], [address], 08/09/2024 11:56:42 08/10/19 25 08/09/2024 COMP. METAB OLIC PANEL anion gap 12.5 5.0-15 .0 Not Available [address], [address], 08/09/2024 11:56:42 08/10/19 25 08/09/2024 COMP. METAB OLIC PANEL CO2 24 mmol/ L 21-32 Not Available [address], [address], 08/09/2024 11:56:42 08/10/19 25 08/09/2024 COMP. METAB OLIC PANEL calcium 10.2 mg/dL 8.5-10 .3 Not Available [address], [address], 08/09/2024 11:56:42 08/10/19 25 08/09/2024 COMP. METAB OLIC PANEL total protein 7.0 g/dL 6.4-8. 2 Not Available [address], [address], 08/09/2024 11:56:42 08/10/19 25 08/09/2024 COMP. METAB OLIC PANEL albumin 4.1 g/dL 3.4-5. 0 Not Available [address], [address], 08/09/2024 11:56:42 08/10/19 25 08/09/2024 COMP. METAB OLIC PANEL globulin 2.9 g/dL Not Available [address], [address], 08/09/2024 11:56:42 08/10/19 25 08/09/2024 COMP. METAB OLIC PANEL A/G 1.4 ratio 0.8-2. 0 Not Available [address], [address], 08/09/2024 11:56:42 08/10/19 25 08/09/2024 COMP. METAB OLIC PANEL total bilirubin 0.80 mg/dL 0.00-1 .00 Not Available [address], [address], 08/09/2024 11:56:42 08/10/19 25 08/09/2024 COMP. METAB OLIC PANEL AST 28 U/L 0-37 Not Available [address], [address], 08/09/2024 11:56:42 08/10/19 25 08/09/2024 COMP. METAB OLIC PANEL ALT 38 U/L 6-63 Not Available [address], [address], 08/09/2024 11:56:42 08/10/19 25 08/09/2024 COMP. METAB OLIC PANEL alk. phos. 75 U/L 50-136 Not Available [address], [address], 08/09/2024 11:56:42 08/10/19 25 08/09/2024 LIPID PANEL cholesterol 162 mg/dL <200 mg/dl Aminah able 200-2 39 mg/dl Borde rline High >240 mg/dl High Not Available [address], [address], 08/09/2024 11:56:43 08/10/19 25 08/09/2024 LIPID PANEL triglyceride s 173 mg/dL <150 mg/dL Alfreda l 150-1 99 mg/dL Borde rline High 200-4 99 mg/dL High >500 mg/dL Very High Not Available [address], [address], 08/09/2024 11:56:43 08/10/1908/09/2024 LIPID PANEL direct HDL 52 mg/dL <40 mg/dl - Major Risk for CHD >60 mg/dl - Negat re Risk for CHD Not Available [address], [address], 08/09/2024 11:56:43 08/10/19 25 08/09/2024 URIC ACID uric acid 7.7 mg/dL 3.5-7. 2 high Not Available [address], [address], 08/09/2024 11:56:43 08/10/19 25 08/09/2024 LDL - CALCU LATED LDL - calculated 75 RISK CATEG ORY LDL GOAL _ CHD or CHD Risk Equiv alent s <100 mg/dl (10-y ear risk >20%) 2+ Risk Facto rs <130 mg/dl (10-y ear risk <= 20%) 0-1 Risk Facto r? <160 mg/dl ? Almos t all peopl e with 0-1 risk facto r have a 10 year risk <10%, thus 10 year risk asses ment in peopl e with 0-1 risk facto r is not necevy campa. Not Available [address], [address], 08/09/2024 11:56:44 08/16/19 25 08/15/2024 COMP. METAB OLIC PANEL glucose 116 mg/dL 70-100 high Not Available [address], [address], 08/15/2024 14:58:17 08/16/19 25 08/15/2024 COMP. METAB OLIC PANEL BUN 53 mg/dL 7-18 high Not Available [address], [address], 08/15/2024 14:58:17 08/16/19 25 08/15/2024 COMP. METAB OLIC PANEL creatinine 1.5 mg/dL 0.8-1. 3 high Not Available [address], [address], 08/15/2024 14:58:17 08/16/19 25 08/15/2024 COMP. METAB OLIC PANEL B/C 35.3 ratio Not Available [address], [address], 08/15/2024 14:58:17 08/16/1908/15/2024 COMP. METAB OLIC PANEL GFR 50.4 mL/mi n abnormal >=60m L/min - Alfreda l or midly reduc ed <60mL /min- Decre ased kidne y funct ion <15mL /min - Kidne y failu re [facility] calcu lates estim ated Glome rular Filtr ation Rate (eGFR ) using the Chron ic Kidne y Disea se Epide miolo gy Colla borat ion (CKD- EPI) Equat ion (Chuck r et. al 2020) as recom arlet d by the Natio nal Kidne y Found ation . eGFR is based on age, serum creat inine , and sex. CKD-E PI does not calcu late eGFR by race, does not apply to child jose martin (age <18 years ), and shoul d not be used in pregn giovanna. Not Available [address], [address], 08/15/2024 14:58:17 08/16/1908/15/2024 COMP. METAB OLIC PANEL sodium 141 mmol/ L 136-14 5 Not Available [address], [address], 08/15/2024 14:58:17 08/16/1908/15/2024 COMP. METAB OLIC PANEL potassium 5.7 mmol/ L 3.5-5. 1 high Not Available [address], [address], 08/15/2024 14:58:17 08/16/1908/15/2024 COMP. METAB OLIC PANEL chloride 105 mmol/ L 96-107 Not Available [address], [address], 08/15/2024 14:58:17 08/16/1908/15/2024 COMP. METAB OLIC PANEL anion gap 13.3 5.0-15 .0 Not Available [address], [address], 08/15/2024 14:58:17 08/16/19 25 08/15/2024 COMP. METAB OLIC PANEL CO2 23 mmol/ L 21-32 Not Available [address], [address], 08/15/2024 14:58:17 08/16/19 25 08/15/2024 COMP. METAB OLIC PANEL calcium 10.1 mg/dL 8.5-10 .3 Not Available [address], [address], 08/15/2024 14:58:17 08/16/19 25 08/15/2024 COMP. METAB OLIC PANEL total protein 7.2 g/dL 6.4-8. 2 Not Available [address], [address], 08/15/2024 14:58:17 08/16/1908/15/2024 COMP. METAB OLIC PANEL albumin 4.2 g/dL 3.4-5. 0 Not Available [address], [address], 08/15/2024 14:58:17 08/16/1908/15/2024 COMP. METAB OLIC PANEL globulin 3.0 g/dL Not Available [address], [address], 08/15/2024 14:58:17 08/16/1908/15/2024 COMP. METAB OLIC PANEL A/G 1.4 ratio 0.8-2. 0 Not Available [address], [address], 08/15/2024 14:58:17 08/16/1908/15/2024 COMP. METAB OLIC PANEL total bilirubin 0.70 mg/dL 0.00-1 .00 Not Available [address], [address], 08/15/2024 14:58:17 08/16/19 25 08/15/2024 COMP. METAB OLIC PANEL AST 25 U/L 0-37 Not Available [address], [address], 08/15/2024 14:58:17 08/16/1908/15/2024 COMP. METAB OLIC PANEL ALT 34 U/L 6-63 Not Available [address], [address], 08/15/2024 14:58:17 08/16/1908/15/2024 COMP. METAB OLIC PANEL alk. phos. 82 U/L 50-136 Not Available [address], [address], 08/15/2024 14:58:17 08/16/1908/15/2024 URIC ACID uric acid 6.5 mg/dL 3.5-7. 2 Not Available [address], [address], 08/15/2024 14:58:18 04/21/19 23 04/21/2022 US, abdom inal aorta CLINIC AL HISTOR Y: Screen ing. TECHNI QUE: 2D sonogr aphy of the aorta perfor med. COMPAR GUNNAR: None. FINDIN GS: Proxim al aorta 2.5 x 2.4 cm. Mid aorta 1.9 x 2.2 cm. Distal aorta 2.4 x 2.6 cm. The iliac arteri es are normal . IMPRES SONIA: The aorta is normal sized. Marco ricardo Physic jose: Nilesh Dee ms [facility] (Imaging) [address], [place], [address], 05/19/2022 11:41:45 Result Notes None recorded. 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 Rosalinda Wallace NP [address] [place], [address], [facility] 6 17:06:10 Gout 25138763 Completed 200703/24/2012 Rosalinda Wallace NP [address] [place], [address], [facility] 6 17:06:10 Benign essential hypertensio n 4131932 Active 2001 Rosalinda Wallace NP [address] [place], [address], [facility] 6 17:12:36 Pain of multiple joints 21576198 Completed 200601/09/2013 Rosalinda Wallace NP [address] [place], [address], [facility] 6 17:06:10 Open angle with borderline findings Active 2001 Rosalinda Wallace NP [address] [place], [address], [facility] 6 17:06:10 Impacted cerumen 01577754 Completed 200103/24/2012 Rosalinda Wallace NP [address] [place], [address], [facility] 6 17:06:10 Acute pharyngitis 160815536 Completed 200703/24/2012 Rosalinda Wallace NP [address] [place], [address], [facility] 6 17:06:10 Nuclear senile cataract 421402300 Active 2007 Rosalinda Wallace NP [address] [place], [address], [facility] 6 17:06:10 Glucose level outside reference range 773017635 Completed 200701/09/2013 Rosalinda Wallace NP [address] [place], [address], [facility] 6 17:06:10 Onychomycos is 143667347 Completed 200103/24/2012 Rosalinda Wallace NP [address] [place], [address], [facility] 6 17:06:10 Atopic dermatitis 93688646 Completed 200101/09/2013 Rosalinda Wallace NP [address] [place], [address], [facility] 6 17:06:10 Acute swimmer's ear Completed 200103/24/2012 Rosalinda Wallace NP [address] [place], [address], [facility] 6 17:06:10 Clinical finding Completed 200703/24/2012 Rosalinda Wallace NP [address] [place], [address], [facility] 6 17:06:10 Primary open angle glaucoma 45750439 Active 2008 Rosalinda Wallace NP [address] [place], [address], [facility] 6 17:06:10 Knee pain Completed 200201/09/2013 Rosalinda Wallace NP [address] [place], [address], [facility] 6 17:06:10 Pain of joint 61057552 Completed 200611/08/2012 Rosalinda Wallace NP [address] [place], [address], [facility] 6 17:06:10 Insect bite to trunk - nonvenomous 544236263 Completed 11/08/2012 Rosalinda Wallace NP [address] [place], [address], [facility] 6 17:06:10 Gouty arthropathy 659558640 Active Rosalinda Wallace NP [address] [place], [address], [facility] 6 17:12:36 Gouty arthropathy 921031180 Completed 200703/24/2012 Rosalinda Wallace NP [address] [place], [address], [facility] 6 17:06:10 Hyperkalemi a 59578361 Completed 01/09/2013 Rosalinda Wallace NP [address] [place], [address], [facility] 6 17:06:10 Blood chemistry outside reference range 134618702 Completed 01/09/2013 Rosalinda Wallace NP [address] [place], [address], [facility] 6 17:06:10 Elevated blood-press ure reading without diagnosis of hypertensio n 953409427 Completed 200111/08/2012 Rosalinda Wallace NP [address] [place], [address], [facility] 6 17:06:10 Impaired fasting glycemia 084296820 Completed 01/09/2013 Rosalinda Wallace NP [address] [place], [address], [facility] 7 16:11:13 Conjunctivi tis 3911830 Completed 03/24/2012 Rosalinda Wallace NP [address] [place], [address], [facility] 6 17:06:10 Arthropathy 102709249 Completed 200701/09/2013 Rosalinda Wallace NP [address] [place], [address], [facility] 6 17:06:10 Problem Notes None recorded. Procedures Surgical History Date Name Laterality Status Provider Name and Address Organization Details Recorded Time 08/16/19 25 COPD Screening Questions completed Coco Bentley [facility] 08/15/2024 08:05:30 05/16/19 25 Medicare Wellness Visit completed Corby Luna [place] [facility] 05/16/2024 09:49:35 05/16/19 25 Cardiovascular disease risk reduction counseling completed Corby Luna [facility] 05/16/2024 09:50:23 05/16/19 25 prevention-annual alcohol misuse screening completed Corby Luna [facility] 05/16/2024 09:50:21 03/23/20 22 Medicare Wellness Visit completed Krystyna Boyce [facility] 03/23/2022 09:13:01 03/23/20 22 Alcohol use screening completed Krystyna Boyce [facility] 03/23/2022 09:13:01 03/23/20 22 Cardiovascular disease risk reduction counseling completed Krystyna Boyce [facility] 03/23/2022 09:13:02 03/23/20 22 Depression Screening completed OLEG TIRADO PA-C [address] [place] [address], [address], [facility] 03/29/2022 18:49:15 02/29/20 20 prevention-cardiov ascular risk reduction counseling completed Tammy Castellanos [facility] 02/29/2020 10:00:53 02/29/20 20 prevention-annual alcohol misuse screening completed Tammy Castellanos [facility] 02/29/2020 10:00:53 07/07/19 18 Mechelle - Colonoscopy completed Romy Min MD [address] [place] [address], [address], [facility] 07/06/2017 07:47:33 01/13/20 14 Seborrheic Keratosis completed Rosalinda Wallace NP [address] [place] [address], [address], [facility] 01/12/2014 10:00:19 12/25/19 12 Actinic Keratosis completed Rosalinda Wallace NP [address] [place] [address], [address], [facility] 12/25/2011 17:03:26 12/25/19 12 Seborrheic Keratosis completed Rosalinda Wallace, TAMICA [address] [facility], [place], [address], [facility] 12/25/2011 17:03:26 07/05/19 08 completed Not Available [facility] 02/26/2011 06:05:52 Imaging Results Imaging Date Name Status LastModified by Organiz ation Details LastModified Time 04/21/2022 US, abdominal aorta completed [facility] (Imaging) [address], [place], [address], 05/19/2022 11:41:45 Procedure Notes None recorded. Medical Equipment None Reported. Allergies Allergen ID Allergen Name Allergen Category Reaction Reaction Severity Criticality Documentation Date Start Date Code Code System Note Provider Name and Address Organization Details Recorded Time 39248 lisinopri l medicatio n other severe Not available 09/21/2008 06712 RxNorm hyper kalem ia - Per Pt, Speci alist resta rted 4 CHERELLE Jordan, [facility] 4 07:57:13 Medications Name Sig Start Date Stop Date Status Note LastModified by Organization Details LastModified Time amoxicill in 500 mg capsule active Not Available Not Available Not Available latanopro st 0.005 % eye drops active Not Available Not Available Not Available prednison e 10 mg tablet Take by oral route. 6 tabs now, then 3 tabs po qd for 2 d, then 2 tabs po qd 2d then 1 tab po qd for 2 d then stop. 2011 active Not Available Not Available Not Avai lable atorvasta tin 20 mg tablet Take 1 tablet by mouth daily. 2024 active Not Available Not Available Not Avai lable sildenafi l 50 mg tablet Take 1 tablet once daily as needed 1 hour before sexual activity 2023 active Not Available Not Available Not Avai lable ofloxacin 0.3 % eye drops 03/10 completed Not Available Not Available Not Available metoprolo l succinate ER 50 mg tablet,ex tended release 24 hr Take 1 tablet every day by oral route. 05/16 completed Not Available Not Available Not Available atenolol 100 mg tablet Take 1 tablet every day by oral route. 2011 active Upcoming PHA 12/24 Not Available Not Available Not Available lisinopri l 20 mg tablet TAKE 1 TABLET DAILY 2024 active Not Available Not Available Not Avai lable prednison e 20 mg tablet TAKE 3 TABLETS DAILY X 2 DAYS, 2 TABLETS DAILY X 2 DAYS, 1 TABLET DAILY X 2 DAYS, 0.5 TAB X 2 DAYS active Not Available Not Available No t Available atenolol 25 mg tablet Take 1 tablet every day by oral route. 2008 active Not Available Not Available Not Avai lable amlodipin e 2.5 mg tablet Take 1 tablet every day by oral route. 02/18 completed Not Available Not Available Not Available acetamino phen 300 mg-codein e 30 mg tablet TAKE 1 TO 2 TABLET BY MOUTH EVERY 4 TO 6 HOURS NEEDED FOR PAIN active Not Available Not Available No t Available chlorthal idone 25 mg tablet Take 1 tablet every day by oral route in the morning. 08/15 completed Not Available Not Available Not Available Alphagan P 0.15 % eye drops Instill 1 drop 3 times a day by ophthalm ic route. 10/22 completed Not Available Not Available Not Available amlodipin e 5 mg tablet Take 1 tablet every day by oral route. 2011 active Not Available Not Available Not Avai lable allopurin ol 100 mg tablet Take 3 tablets by mouth daily. active Not Available Not Available No t Available Ciloxan 0.3 % eye drops Instill 1 DROP EVERY 2 HOURS While awake) by ophthalm ic route for 2 days, then 1 drop every 4 hours while awake x 5 days 2011 active Not Available Not Available Not Avai lable spironola ctone 25 mg tablet Take 1 tablet every day by oral route. 11/07 completed Not Available Not Available Not Available prednisol one acetate 1 % eye drops,iva pension 03/10 completed Not Available Not Available Not Available amlodipin e 10 mg tablet Take 1 tablet every day by oral route. 04/07 completed Not Available Not Available Not Available cephalexi n 500 mg capsule TAKE 1 CAPSULE BY MOUTH THREE TIMES A DAY FOR 5 DAYS active Not Available Not Available No t Available lisinopri l 10 mg tablet 09/21 completed Take 1.50 tabs every day before noon Not Available Not Available Not Available brimonidi ne 0.2 % eye drops active Not Available Not Available No t Available indometha red 50 mg capsule 2007 active Take 1.00 caps 3 times daily as needed Not Available Not Available Not Available Polytrim 10,000 unit-1 mg/mL eye drops INSTILL 1 DROP INTO AFFECTED EYE(S) BY OPHTHALM IC ROUTE EVERY 6 HOURS 02/28 completed Not Available Not Available Not Available allopurin ol 300 mg tablet Take 1 tablet every day by oral route. 2012 active Not Available Not Available Not Avai lable metoprolo l succinate ER 25 mg tablet,ex tended release 24 hr TAKE 1 TABLET DAILY active Not Available Not Available No t Available Viagra 100 mg tablet Take 1 tablet every day by oral route. 2011 active Not Available Not Available Not Avai lable atropine 1 % eye drops 03/10 completed Not Available Not Available Not Available atenolol 50 mg tablet Take 1.5 tablets every day by oral route. 10/15 completed Not Available Not Available Not Available allopurin ol 100mg BID active Not Available Not Available No t Available Alphagan P 0.1 % eye drops INSTILL 1 DROP ONTO BOTH EYES DAILY 02/28 completed generic and only left eye Not Available Not Available Not Available Bystolic 20 mg tablet Take 1 tablet every day by oral route. active Not Available Not Available No t Available Colcrys 0.6 mg tablet Take 1 tablet every day by oral route. 2011 active Not Available Not Available Not Avai lable celery seed oil (bulk) active Not Available Not Available Not Available Fluarix Quad [id number] (PF) 60 mcg (15 mcg x 4)/0.5 mL IM syringe TO BE ADMINIST ERED BY A PHARMACI ST 09/16 completed Not Available Not Available Not Available chlorthal idone 12.5 mg tablet Take 1 tablet every day by oral route. active Not Available Not Available No t Available Vitals Date Recorded Body height Body mass index (BMI) Body weight Heart rate Oxygen saturation Oxygen saturation in Arterial blood by Pulse oximetry Systolic blood pressure Diastolic blood pressure Provider Name and Address Organization Details Last Updated DateTime 2 181.61 cm 29.2 kg/m2 75567.2 8 g 68 /min 98 % 98 % 144 mm[Hg] 89 mm[Hg] Krystyna Boyce [facility] 2 15:36:16 Date Recorded Body height Body mass index (BMI) Body weight Heart rate Systolic blood pressure Diastolic blood pressure Provider Name and Address Organization Details Last Updated DateTime 3 181.61 cm 29.7 kg/m2 56484.9 5 g 74 /min 118 mm[Hg] 67 mm[Hg] Danielle Christina [facility] 3 15:33:09 Date Recorded Heart rate Systolic blood pressure Diastolic blood pressure Provider Name and Address Organization Details Last Updated DateTime 10/21/2023 65 /min 123 mm[Hg] 73 mm[Hg] Gordo Zhen [facility] 10/21/2023 09:31:21 Date Recorded Body height Body mass index (BMI) Body weight Heart rate Oxygen saturation Oxygen saturation in Arterial blood by Pulse oximetry Systolic blood pressure Diastolic blood pressure Provider Name and Address Organization Details Last Updated DateTime 5 181.61 cm 29.2 kg/m2 84093.5 8 g 80 /min 98 % 98 % 127 mm[Hg] 68 mm[Hg] Corby Luna MA [facility] 5 11:35:53 Date Recorded Body height Body mass index (BMI) Body weight Heart rate Oxygen saturation Oxygen saturation in Arterial blood by Pulse oximetry Systolic blood pressure Diastolic blood pressure Provider Name and Address Organization Details Last Updated DateTime 5 181.61 cm 29.3 kg/m2 45456.1 7 g 72 /min 97 % 97 % 122 mm[Hg] 72 mm[Hg] Coco Bentley [facility] 5 08:07:42 Social History Question Answer Notes LastModified by Organizat ion Details LastModified Time Tobacco Smoking Status Former Smoker quit over 25 years ago 09/22/21 [place] 05/16/24 [facility] 05/16/2024 11:25:33 Do You Have An Advance Directive? No Given 09/30/09 [email or web address] Information not available 09/30/2009 Do You Wear A Helmet When Biking? Yes 05/16/24 Information not available 05/16/2024 Are You Blind Or Do You Have Difficulty Seeing? No Information not available 07/11/2013 What Is Your Level Of Caffeine Consumption? Moderate 1 Cup A Day 05/16/24 Information not available 05/16/2024 How Much Tobacco Do You Chew? None [email or web address] Information not available 02/26/2011 Are You Deaf Or Do You Have Serious Difficulty Hearing? No Information not available 07/11/2013 What Type Of Diet Are You Following? REGULAR Whole Wheat, 05/16/24 Information not available 05/16/2024 Education 12 Some College Information not available 10/06/2010 What Is The Highest Grade Or Level Of School You Have Completed Or The Highest Degree You Have Received? [id number] Information not available 03/21/2021 Have There Been Any Changes To Your Family Or Social Situation? Yes Has A New Grandchild 03/23/2205/16/24 Information not available 05/16/2024 Are There Any Guns Present In Your Home? Yes 05/16/24 Information not available 05/16/2024 Do You Use Insect Repellent Routinely? No 05/16/24 Information not available 05/16/2024 Live Alone Or With Others? With Others [email or web address] Information not available 09/12/2020 Patient Has Health Care Proxy Signed And In Chart Yes [email or web address] Information not available 02/27/2019 Marital Status Information not available 02/26/2011 Mosquito Repellent Used Routinely No [email or web address] Information not available 02/26/2011 What Was The Date Of Your Most Recent Tobacco Screening? 08/15/2024 03/23/22 [email or web address] Information not available 08/15/2024 How Many Children Do You Have? 2 Daughters Information not available 10/06/2010 What Is Your Current Pack Years? 10packyears [email or web address] Information not available 11/05/2023 What Is Your Relationship Status? Information not available 03/21/2021 Do You Use Your Seat Belt Or Car Seat Routinely? Yes 05/16/24 Information not available 05/16/2024 Seat Belts Used Routinely Yes Information not available 02/26/2011 Smoke Alarm In Home Yes [email or web address] Information not available 02/26/2011 Do You Have Smoke And Carbon Monoxide Detectors In Your Home? Yes 05/16/24 Information not available 05/16/2024 Are You Passively Exposed To Smoke? No 05/16/24 Information not available 05/16/2024 How Much Tobacco Do You Smoke? No Information not available 02/15/2019 General Stress Level Low [email or web address] Information not available 02/26/2011 Do You Use Sunscreen Routinely? No 05/16/24 Information not available 05/16/2024 Do You Have Difficulty Walking Or Climbing Stairs? No Information not available 07/11/2013 Sex: Unknown Functional Status Question Answer Note LastModified by OrganPintley ion Details LastModified Time Do you use any illicit or recreational drugs? No [email or web address] Information not available 03/23/2022 What is your level of alcohol consumption? Occasional a few twice a week. 08/08/14 sw 05/16/24 Information not available 05/16/2024 Do you or have you ever used smokeless tobacco? Never used smokeless tobacco Information not available 02/15/2019 Do you have difficulty doing errands alone? 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 No Information not available 07/11/2013 Do you or have you ever used e-cigarettes or vape? Never used electronic cigarettes Information not available 02/15/2019 What is your exercise level? Occasional Walks regularly Information not available 05/16/2024 Mental Status Question Answer Note LastModified by Organization D etails LastModified Time Do you have difficulty concentrating, remembering or making decisions? No Information no t available 07/11/2013 Family History Relationship Description Onset Age of this Age Resolved Age Notes LastModified by Organization Details LastModified Time Mother Mishel luis Not available 08/28/2015 17:06:29 Notes:Cardiovascular: Family history is remarkable for hypertension. mother and father, mother of CHF at 72. . Renal/Genitourinary: Family history is remarkable for renal disease. mother had nephrectomy. . Neurological: Family history is remarkable for stroke. father of stroke at 70. . Psychiatric: Family history is remarkable for bipolar disorder. sister. . Endocrine: Family history is remarkable for hypothyroidism. mother and sister. Medical History No medical history recorded. Immunizations Vaccine Type Date Status Note Provider Nam e and Address Organization Details Recorded Time Tdap 7 completed Not Available [facility] 10/07/2022 16:03:33 influenza, unspecified formulation 7 completed Not Available [facility] 10/07/2022 16:03:33 influenza, unspecified formulation 8 completed Not Available [facility] 10/07/2022 16:03:33 Influenza, split virus, trivalent, preservative 2 completed Not Available [facility] 04/29/2019 02:37:08 zoster live 2 completed Not Available [facility] 04/29/2019 02:16:34 Influenza, split virus, trivalent, PF 3 completed Not Available [facility] 04/29/2019 02:18:58 Influenza, split virus, trivalent, preservative 4 completed Not Available [facility] 04/29/2019 02:19:21 Influenza, split virus, quadrivalent, PF 5 completed Not Available [facility] 04/29/2019 02:32:26 Td (adult), 2 Lf tetanus toxoid, preservative free, adsorbed 6 completed Not Available [facility] 04/29/2019 02:32:26 Influenza, split virus, quadrivalent, preservative 6 completed Not Available [facility] 10/07/2022 16:03:33 Influenza, split virus, quadrivalent, preservative 7 completed Not Available [facility] 10/07/2022 16:03:33 Influenza, split virus, quadrivalent, preservative 8 completed Not Available [facility] 10/07/2022 16:03:33 Influenza, split virus, quadrivalent, preservative 9 completed Not Available [facility] 10/07/2022 16:03:33 Influenza, split virus, quadrivalent, preservative 0 completed Not Available [facility] 10/07/2022 16:03:33 zoster recombinant 0 completed Not Available [facility] 10/07/2022 16:03:33 COVID-19 vaccine, vector-nr, rS-Ad26, PF, 0.5 mL 1 completed Not Available [facility] 10/07/2022 16:03:33 COVID-19, mRNA, LNP-S, PF, 30 mcg/0.3 mL dose 1 completed Not Available [facility] 10/07/2022 16:03:33 Influenza, split virus, quadrivalent, preservative 1 completed Not Available [facility] 10/07/2022 16:03:33 COVID-19, mRNA, LNP-S, bivalent, PF, 3 mcg/0.2 mL dose 2 completed Not Available [facility] 10/07/2022 16:03:33 Influenza, adjuvanted, quadrivalent, PF 2 completed Not Available [facility] 10/07/2022 16:03:33 zoster, unspecified formulation 0 completed Not Available [facility] 10/07/2022 16:03:33 Pneumococcal conjugate PCV 13 3 completed Not Available [facility] 10/07/2022 16:03:33 Past Encounters Encounter ID Performer Location Encounter Start Date Encounter Closed Date Diagnosis/Indication Diagnosis SNOMED-CT Code Diagnosis ICD10 Code Diagnosis Note [id number] [facility] [employer] [facility], [facility] [address] [facility] [place] [address] 08/10/2001 11:15:00 05/02/2008 02:02:29 [id number] Guerda Rondon MD , [facility], OFFICE [address] [place] [address] 11/24/2001 10:35:25 05/02/2008 02:02:29 [id number] Dulce CRUZ , [facility], OFFICE [address] [place] [address] 02/09/2002 11:04:29 05/02/2008 02:02:29 [id number] [facility] - [facility] [place] [address] 02/16/2002 07:51:09 05/02/2008 02:02:29 [id number] Dulce BENAVIDES, [facility], OFFICE [address] [place] [address] 03/27/2002 08:48:09 05/02/2008 02:02:29 [id number] KVNG Tipton, [facility], OFFICE [address] [place] [address] 06/20/2002 11:00:52 05/02/2008 02:02:29 [id number] TAMICA Kwan, [facility], OFFICE [address] [place] [address] 1 03/02/2007 09:38:48 05/02/2008 02:02:29 [id number] [facility] - [address] [place] [address] 03/08/2007 07:11:02 03/08/2007 07:11:08 [id number] TAMICA Kwan, [facility], OFFICE [address] [place] [address] 03/22/2007 07:48:04 05/02/2008 02:02:29 [id number] [facility] - [facility] [place] [address] 1 03/22/2007 08:56:12 03/22/2007 08:56:18 [id number] [facility] - [address] [place] [address] 1 04/26/2007 09:20:54 04/26/2007 09:21:02 [id number] [facility] - [address] [place] [address] 05/31/2007 11:19:00 05/31/2007 11:19:08 [id number] Bhupendra Perkins, OD Eye Care, [address] [place] [address] 06/16/2007 07:47:40 06/16/2007 09:34:06 [id number] TAMICA Kwan, [facility], OFFICE [address] [place] [address] 06/17/2007 08:14:33 05/02/2008 02:02:29 [id number] Bhupendra Perkins, OD [facility], [facility] [address] [place] [address] 1 06/22/2007 15:21:44 06/23/2007 07:27:50 [id number] ASP, ADRIANA MELENDEZ MD ASP, [facility] [place] [address] 07/05/2007 07:09:53 07/06/2007 07:22:19 [id number] TAMICA Kwan, [facility], OFFICE [address] [place] [address] 07/06/2007 07:48:50 05/02/2008 02:02:29 [id number] [facility] - [facility] [place] [address] 1 07/06/2007 00:00:00 05/02/2008 02:02:29 [id number] TAMICA Kwan, [facility], OFFICE [address] [place] [address] 07/19/2007 14:53:24 05/02/2008 02:02:29 [id number] TAMICA Kwan, [facility], OFFICE [address] [place] [address] 08/05/2007 07:51:35 05/02/2008 02:02:29 [id number] MD KENNEDY Dai, [facility], [address] [place] [address] 11/26/2007 09:31:45 05/02/2008 02:02:29 [id number] [facility] - [facility] [place] [address] 11/28/2007 08:02:33 11/28/2007 08:02:42 [id number] TAMICA Kwan, [facility], OFFICE [address] [place] [address] 12/06/2007 14:00:31 05/02/2008 02:02:29 [id number] [facility] - [facility] [place] [address] 01/18/2008 11:23:18 01/18/2008 11:23:28 [id number] TAMICA Kwan, [facility], OFFICE [address] [place] [address] 02/03/2008 15:22:19 05/02/2008 02:02:29 [id number] TAMICA Kwan, [facility], [address] [place] [address] 08/11/2008 12:08:04 08/16/2008 11:54:16 [id number] Rosalinda Wallace NP , [facility], OFFICE [address] [place] [address] 09/28/2008 10:58:24 10/01/2008 08:12:11 [id number] Bhupendra Gregorio, OD Eye Care, [address] [place] [address] 08/22/2008 08:32:49 08/22/2008 11:53:17 [id number] [facility] - [address] [place] [address] 08/22/2008 10:15:20 08/22/2008 10:15:27 [id number] [facility] - [address] [place] [address] 09/20/2008 12:03:21 09/20/2008 12:03:33 [id number] [facility] - [address] [place] [address] 10/17/2008 07:43:18 10/17/2008 07:43:24 [id number] Rosalinda Wallace NP , [facility] [address] [place] [address] 09/30/2009 15:27:57 10/01/2009 09:46:35 [id number] Rosalinda Wallace NP , [facility] [address] [place] [address] 10/06/2010 14:57:18 10/06/2010 15:48:40 [id number] Ludin Perdomo III, MD , [facility] [address] [place] [address] 12/25/2011 15:01:06 12/25/2011 16:39:14 [id number] Heriberto Fontaine MD Rheumatol ogy, [address] [place] [address] 03/10/2012 14:03:39 03/14/2012 10:21:17 [id number] Ludin Perdomo III, MD , [facility] [address] [place] [address] 03/25/2012 07:45:17 03/25/2012 08:22:44 [id number] Ludin Perdomo III, MD , [facility], OFFICE [address] [place] [address] 04/22/2012 14:58:44 04/22/2012 15:23:48 [id number] MD KENNEDY Murillo III, [facility], OFFICE [address] [place] [address] [place] [address] 11/08/2012 07:59:42 11/08/2012 08:45:46 [id number] MD KENNEDY Murillo III, [facility], OFFICE [address] [place] [address] [place] [address] 01/09/2013 15:03:45 01/09/2013 16:11:29 Adult health examination 263688980 see Risk Assessment and Lifestyle Change Counseling section above Benign ess ential hypertension 2838140 Blood pressure NOT at goal. Followed by nephrology Influenza vaccine needed 6844747114 106 Gouty arthropathy 225799976 [id number] Ludin Perdomo III, MD , [facility], OFFICE [address] [place] [address] [place] [address] 07/11/2013 07:11:32 07/11/2013 08:12:43 Benign essential hypertension 3947071 Blood pressure at goal via home readings. Impaired f asting glycemia 839237957 [id number] Rosalinda Wallace NP , [facility], OFFICE [address] [place] [address] [place] [address] 01/12/2014 08:08:49 01/12/2014 09:20:09 Benign essential hypertension 6634578 Blood pressure at goal via home readings. Adult heal th examination 495618539 see Risk Assessment and Lifestyle Change Counseling section above Influenza vaccine needed 8206303580 106 Pre-surger y evaluation 671053706 Gouty arthropathy 481958142 Nuclear se nile cataract 805410433 Seborrheic keratosis 61960217 [id number] TAMICA Kwan, [facility], OFFICE [address] [place] [address] 08/08/2014 07:40:34 08/08/2014 08:16:03 Essential hypertension 82899767 BP not at goal. Advised to check BP away from office and bring record to next appt along with any home BP equipment. Cyst of finger 394503164 [id number] KVNG Vincent, [facility], OFFICE [address] [place] [address] 01/09/2015 13:15:04 01/09/2015 13:41:06 Influenza vaccine needed 0798540394 106 Contact de rmatitis caused by urushiol from Eastern poison richard 384419415 On face, pretty significan t, but not itching. Would do prednisone but has glaucoma. If worsening, call and I'd check w/ ophtho about using PO steroids. [id number] Rosalinda Wallace NP , [facility], OFFICE [address] [place] [address] 08/28/2015 16:01:12 08/28/2015 16:44:28 Gouty arthropathy 323988694 M10.00 Benign ess ential hypertension 0155750 I10 Blood pressure NOT at goal Adult heal th examination 416866791 Z00.00 see Risk Assessment and Lifestyle Change Counseling section above Active or passive immunization 697344445 Z23 Foreign danuta dy in skin of forearm 155286523 S50.851S [id number] Essence BENAVIDES, [facility], OFFICE [address] [place] [address] 10/23/2015 11:06:53 10/25/2015 12:22:48 Retinal detachment 46213030 H35.70 Pre-surger y evaluation 315595659 Z01.547 [id number] Essence BENAVIDES, [facility], OFFICE [address] [place] [address] 03/10/2016 14:29:50 03/10/2016 14:47:11 Benign essential hypertension 0328192 I10 Blood pressure at goal [id number] Essence BENAVIDES, [facility], OFFICE [address] [place] [address] 09/16/2016 14:58:18 09/16/2016 15:33:05 Adult health examination 840491319 Z00.00 see Risk Assessment and Lifestyle Change Counseling section above Benign ess ential hypertension 3469481 I10 Blood pressure at goal via home readings, followed by nephrology . Gouty arthropathy 875066 008 M10.00 Allopurino l daily. Impaired f asting glycemia 444879132 R73.01 Advised to lower intake of white sugars, white flours and rice and decrease intake of alcohol. Ocular hypertension 4210 003 H40.052 Followed by eye care. [id number] Essence BENAVIDES, [facility], OFFICE [address] [place] [address] 03/24/2017 15:38:13 03/24/2017 16:33:19 Benign essential hypertension 1529539 I10 Blood pressure NOT at goal. Low back pain 887976436 M54.5 Screening for malignant neoplasm of colon 195806421 Z12.11 Impaired f asting glycemia 622637550 R73.01 Advised to lower intake of white sugars, white flours and rice and decrease intake of alcohol. [id number] Romy Min MD [facility], [facility] [address] [place] [address] 07/06/2017 06:34:23 07/06/2017 12:23:30 [id number] Essence Koch [facility], OFFICE [address] [place] [address] 11/26/2017 09:24:09 11/26/2017 10:27:38 Adult health examination 771727375 Z00.00 see Risk Assessment and Lifestyle Change Counseling section above Depression screening 171 768325 Z13.89 depression screening tool administer ed, entered into emr, scored and discussed, time greater than 7.5 minutes Benign ess ential hypertension 0811565 I10 Blood pressure at goal Gouty arthropathy 495247 008 M10.00 Allopurino l daily. [id number] Essence Koch [facility], OFFICE [address] [place] [address] 03/07/2018 08:19:28 03/07/2018 08:35:13 Nasopharyngitis 49102339 J00 Conjunctivitis 3461141 H 10.9 Benign ess ential hypertension 1344207 I10 [id number] Essence Koch [facility], OFFICE [address] [place] [address] 02/15/2019 14:59:41 02/15/2019 15:50:16 Adult health examination 808596238 Z00.00 see Risk Assessment and Lifestyle Change Counseling section above Depression screening 171 427607 Z13.89 depression screening tool administer ed, entered into emr, scored and discussed, time greater than 7.5 minutes Benign ess ential hypertension 3139539 I10 Blood pressure at goal Gouty arthropathy 806073 008 M10.00 Allopurino l daily. Impaired f asting glycemia 404544815 R73.01 Recent FBS 99. Advised to lower intake of white sugars, white flours and rice and decrease intake of alcohol. 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 M67.500 [id number] GEOVANNI Ayoub , [facility], OFFICE [address] [place] [address] 08/21/2019 08:05:32 08/21/2019 15:44:30 Essential hypertension 71117062 I10 BP at goalStable on current medsAlso followed by nephrology Continue with diet and exercise as discussedP [facility] [id number] GEOVANNI Ayoub , [facility], OFFICE [address] [place] [address] 02/29/2020 11:10:52 02/29/2020 16:08:42 Adult health examination 545153361 Z00.00 Discussed dietary changes, including increased water intake, fruits, veggies and decreasing sugary beverages, processed/ fatty foods, carbs (breads, pastas, rice) Discussed good exercise habits, including at least 30 minutes of vigorous exercise five times per week, as well as strength training twice per week. Also discussed limiting sitting time. Colonoscop y: UTD Labs: UTD Vaccines: UTD Counseling 528056659 Z71 .9 including cardiovasc ular risk reduction counseling Depression screening 171 382842 Z13.89 depression screening tool administer ed, entered into emr, scored and discussed, time greater than 7.5 minutesPHQ 9- 0Negative, mood stable Screening for alcohol abuse 194076902 Z13.39 Audit score 3 Essential hypertension 92191621 I10 BP at goalStable on current meds- lisinopril , metoprolol Also followed by nephrology - f/u in inue with diet and exercise as discussedP [facility] Gouty arthropathy 114758 008 M10.09 Stable, uric acid level in normal rangeTakin g 200 mg Allopurino l daily Impaired f asting glycemia 874419463 R73.01 FBG 107Reviewe d cutting back on sugar and carbsWill continue to monitor this Primary op en angle glaucoma 53290226 H40.[address] Mejia Primary er ectile dysfunction 669070276 N52.9 Sx consistent with ED Will trial ViagraRejoseph ewed medication , how to take, common s/eCall with any concerns [id number] Justin [place] MD , [facility], OFFICE [address] [place] [address] 09/12/2020 08:18:56 09/12/2020 08:47:50 Essential hypertension 14557006 I10 BP a little elevated today in office, although admits has white-coat HTN Checking at home and 130s/80s Continue with regular walks. Recommende d continue cutting down on sugars, salts. Drink alcohol in moderation Labs are UTD, stable kidney function F/u again in six months at annual wellness visit with repeat fasting labs. Gouty arthropathy 195100 008 M10.09 No recent flares, historical ly has had them primarily in his feet, sometimes in shoulders/ elbows Uric acid level stable at 7 Continues allopurino l 100 mg - taking 2 tabs daily rather than the 3 initially prescribed Continue current dose Repeat labs again in six months Impaired f asting glycemia 574840728 R73.01 FBS 105. Continue working on cutting down on carbs. Continue with regular walks Repeat labs again in six months Mixed hyperlipidemia 267 504904 E78.2 Not currently on a statin 02/2020: total cholestero l 202, tri 185, HDL 51, LDL 114 Continue to work on healthy diet and regular exercise Repeat labs again at annual wellness visit in six months [id number] Justin Washington MD , [facility], OFFICE [address] [place] [address] 03/21/2021 10:55:50 03/21/2021 15:12:41 Adult health examination 139171025 Z00.00 Reviewed labs today - will refer to nutritioni st for high sugars, high cholestero lSee plan for HTN management belowSees cardiology every yearVaccin es are up to dateColo up to date in 2018, hyperplast ic polyp, recall 10 yearsF/u again in 3-4 weeks for BP check Counseling 968870184 Z71 .9 including cardivascu lar risk reduction counseling Depression screening 171 689698 Z13.31 depression screening tool administer ed, entered into emr, scored and discussed, time greater than 7.5 minutes Screening for alcohol abuse 457514432 Z13.39 AUDIT 2 out of 12. Essential hypertension 43377987 I10 BP not at goal less than 130/80Norm al renal panel, but does have high microalbum in/creat ratio as ordered by cardiologi Melany to work on diet, exercise as discussedI ncreased metoprolol from 25 to 50 mg daily ER. Reviewed risks/bene fits/side effectsF/u again BP check in 3-4 weeks with this [employer] Mixed hyperlipidemia 267 030810 E78.2 Total 235, tri 228, HDL 52, LDL 137.4, ASCVD score 19.5%He prefers nutrition changes before statinWill refer to nutritioni stWill repeat closely in six months to monitorIf remains high despite diet changes, will start statin Impaired f asting glycemia [id number] R73.01 FBS 114As above, referred to nutritioni stRepeat every six months [id number] Justin Washington MD , [facility], OFFICE [address] [place] [address] 04/18/2021 11:06:16 04/18/2021 11:41:07 Benign essential hypertension 6227022 I10 Lowest BP today 127/75 - at goal less than 130/80Some high readings at home - he will continue to monitor readings with home BP cuffContin ue metoprolol ER 50 mg daily - tolerating higher dose without side effectsCon tinue lisinopril 20 mg dailyHas upcoming appt with renal specialist Dr Verma as well who helps monitorNor mal kidney function 03/13/21Fol low-up six months at med mgmt visit, or sooner if needed Impaired f asting glycemia [id number] R73.01 FBS 114Continu e to work on cutting down carb intakeRepe at in six months at med mgmt visit [id number] Mehreen Iniguez . , [facility], OFFICE [address] [place] [address] 09/22/2021 07:49:40 09/22/2021 08:37:33 Benign essential hypertension [id number] I10 At goal less than 130/80Cont inue to monitor readings with home BP cuffContin ue metoprolol ER 25 mg dailyConti nue lisinopril 20 mg daily, Chlorthali done 25 mg dailyHas upcoming appt with renal Dr Sosa stable, repeat 6mo, increase hydration as discussedF ollow-up six months at W or sooner if needed Impaired f asting glycemia [id number] R73.01 A1C 6.0, monitor regularlyC ontinue to work on cutting down carb intakePt declines integrated nutrition today, but agrees to formal referral Mixed hyperlipidemia 267 666077 E78.2 LDL 98, ASCVD 14.5 % warranting cholestero l lowering medPt prefers lifestyle modificati onsWill check labs in 6mo and reconsider statin accordingl y Gouty arthropathy 528712 008 M10.09 Stable, on allopurino lRecheck lab prior to W [id number] Mehreen Iniguez . , [facility], OFFICE [address] [place] [address] 03/23/2022 15:08:04 03/23/2022 16:22:37 Adult health examination 482538756 Z00.00 [place] UTD 06/2017 recall 10 yearsBP as belowAgree s to AAA u/s- [id number] covid boostershi ngles vaccines - utd per ptdiscusse d pneumovaxM M 6mo Counseling 178821679 Z71 .9 including cardiovasc ular risk reduction counseling Depression screening 171 303031 Z13.31 depression screening tool administer ed, entered into emr, scored and discussed, time greater than 7.5 minutes, 06/08 Screening for alcohol abuse 363094333 Z13.39 06/21 rec. moderation Mixed hyperlipidemia 267 320647 E78.2 Cholestero l is not at goalContin ue to work on diet and exercise as discussedL DL 101, ASCVD 17.5% warranting cholestero l lowering medPt prefers lifestyle modificati onsC/t reconsider statin accordingl y Screening for disorder 463425742 Z13.6 AAA u/s- agrees to thisQuit smoking- 30 years ago Benign ess ential hypertension 1262757 I10 At goal less than 130/80 at homeElevat ed in office todayConti nue to monitor readings with home BP cuffContin ue metoprolol ER 25 mg dailyConti nue lisinopril 20 mg daily, Chlorthali done 25 mg dailyFollw s with renal Dr Sosa stable, repeat 6mo, increase hydration as discussedF ollow-up six months or sooner if needed Gouty arthropathy 678190 008 M10.09 Stable, on allopurino lRecent uric acid wnl 7.2 Impaired f asting glycemia 842663683 R73.01 FBS 88A1C 5.7Continu e to work on cutting down carb intake [id number] Mehreen Iniguez . , [facility], OFFICE [address] [place] [address] 09/30/2022 15:04:22 10/07/2022 09:41:20 Benign essential hypertension 6616717 I10 At goal less than 130/80Cont inue to monitor readings with home BP cuffContin ue metoprolol ER 25 mg dailyConti nue lisinopril 20 mg daily, Chlorthali done 25 mg dailyFollw s with renal Dr Sosa stable, repeat 6mo, increase hydration as discussedF ollow-up six months or sooner if needed Impaired f asting glycemia 097956851 R73.01 FBS 115A1C 5.7Continu e to work on cutting down carb intake, increase exercise Mixed hyperlipidemia 267 940799 E78.2 Cholestero l is not at goalContin ue to work on diet and exercise as discussedL DL 113, ASCVD 17.5% warranting cholestero l lowering medPt prefers lifestyle modificati onsC/t reconsider statin accordingl y [id number] Vira Desai MD , [facility], OFFICE [address] [place] [address] 11/16/2023 13:05:07 11/16/2023 15:08:11 Primary erectile dysfunction 206458463 N52.9 Longstandi ng ED with relief from sildenafil Refill sildenafil Hypotensiv e effects discussed and patient is awareConti nue to follow with Dr. Verma from [facility] for monitoring of HTN, BMP Benign ess ential hypertension 5450401 I10 Continue metoprolol 25mg, lisinopril 20mg, chlorthali done 25mgFollow ed by Dr. Verma from [facility] Return to office if any concerns for light headedness , weakness, change in vision, chest pain or palpitatio ns Continue to strive for/ maintain a healthy weight by engaging in 150 weekly minutes of aerobic exercise and consuming a diet low in sodium. When you take in lots of sodium, your body will retain water and this will raise your blood pressure. Consider looking into the DASH diet. A diet that is rich in fruits, vegetables , legumes, and low-fat dairy products and low in snacks, sweets, and red meats can help to lower your blood pressure. [id number] Justin Washington MD , [facility], OFFICE [address] [place] [address] 05/16/2024 11:17:33 05/18/2024 10:12:03 Adult health examination 343384979 Z00.00 UPSTF guidelines reviewedRe cent labs reviewedDu e for pneumonia vaccine and advised to maintain regular health screenings . Get the pneumonia vaccine and continue regular eye and dental check-ups. Depression screening 171 980048 Z13.31 depression screening tool administer ed Screening for alcohol abuse 379212095 Z13.39 Alcohol use screening tool administer ed Nocturia 390576241 R35.1 Reports nocturia 2x/night. Unlikely oral chlorthali done contributi ng given pt takes medication in the morning. PSA testing was discussed and agreed upon by pt. Order PSA test and advise to avoid ejaculatio n and vigorous exercise for 48 hours before the test. Hyperlipidemia 33896876 E78.5 Cholestero l is borderline high with triglyceri kristofer elevated at 252 mg/dL. The 10-year cardiovas ular risk is 17.9% due to a family history of heart disease. Discussed statin medication , benefits and potential adverse reactions. Pt agreeable with starting atorvastat in 20 mg daily. Increase physical activity to 150 minutes per week and reduce alcohol consumptio n. Recheck the lipid panel in 3 months. Chronic ki dney disease stage 3 [id number] N18.30 CKD 3a. BUN creat ratio > 1: 20 indicates dehydratio n. Uncontroll ed HTN in the past may have contribute d to kidney damage. Increase water intake and recheck kidney function in 3 months. Continue current BP regimen as BP currently at goal. Is followed by nephrologi st Dr Catracho Verma at [facility]. Continue yearly nephrology follow-up. Benign ess ential hypertension 3782822 I10 At goal. BP 127/68 today. Continue chlorthali done 25 mg daily, lisinopril 20 mg daily and metoprolol ER 25 mg daily. Occult blo od detected in feces 15294727 R19.5 ifobt positive 03/2024. Patient reports [facility] has already contacted him for an appt. Proceed with gastroente rology consultati on. Colonoscop y most likely next step. Gouty arthropathy 759966 008 M10.09 Currently on allopurino l with no symptoms. Uric acid levels were previously normal. Continue allopurino l. [id number] Justin Washington MD , [facility], OFFICE [address] [place] [address] 08/15/2024 08:00:42 08/15/2024 10:18:25 Immunization due 303726541 Z23 per LARISSA, pt UTD w/ shingrix and has gotten PCV 20 in 2022. Benign ess ential hypertension 0760822 I10 08-15-24: BP 122/72, at goal. Continue w/ half of 25 mg chlorthali done as recommende d by pt's nephrologi st Dr Verma in the setting of worsening kidney function. Can consider stopping chlorthali done if renal function continues to decline. Continue lisinopril 20 mg and metoprolol ER 25 mg daily otherwise. 05-16-24: At goal. BP 127/68 today. Continue chlorthali done 25 mg daily, lisinopril 20 mg daily and metoprolol ER 25 mg daily. Chronic ki dney disease stage 3A 741505295 N18.31 08-15-24: Downtrend in renal function 08-09-24. GFR 43.4, BUN and creat 52 and 1.7 from previous GFR 46.9 and BUN and creat 40 and 1.6 on May 09 2024. Case reviewed w/ pt's nephrologi st who has recommende d pt decrease chlorthali done dose to 12.5 mg daily. Will recheck metabolic panel today to re-assess. Pt to contact nephrologi st practice to set up a follow up appt. 05-16-24: CKD 3a. BUN creat ratio > 1: 20 indicates dehydratio n. Uncontroll ed HTN in the past may have contribute d to kidney damage. Increase water intake and recheck kidney function in 3 months. Continue current BP regimen as BP currently at goal. Is followed by nephrologi st Dr Catracho Verma at [facility]. Continue yearly nephrology follow-up. Gouty arthritis 46972073 M10.9 Uric acid 7.7 w/ no acute symptoms. Pt reports currently on 200 mg allopurino l daily. Likely elevated in the setting of worsening renal function secondary to reduced renal excretion. Recheck levels today. Mixed hyperlipidemia 267 166805 E78.2 On atorvastat in 20 mg daily. LDL cholestero l has decreased from 127 to 75 mg/dL since starting the medication . Cholestero l now 162 from 219. Triglyceri kristofer now 173 from 252. Mild aches in LEs but pt unsure if these symptoms started after initiation of statin therapy. Would prefer to continue therapy for now. Advised monitor for worsening s/s and report if they develop. Consider changing to hydrophill ic statins (rosuvasta tin, pravastati n), lowering dose of current statin or DC statin in the setting of persistent or worsening s/s. Occult blo od detected in feces 81903130 R19.5 ifobt positive 03/2024. Patient reports [facility] has already contacted him for an appt which is scheduled in 2 weeks. Proceed with gastroente rology consultati on. Colonoscop y most likely next step. Health Concerns Section Related Observation LastModified by Organization Detai ls LastModified Time None Recorded Concern Status LastModified by Organization Details LastModified Time None Recorded Advance Directives Directive N: given 09/30/09 Payers Encounter Date Sequence Insurance Name Policy Number Policy Castañeda Covered Member ID Csatañeda Member ID Guarantor Name 03/23/2022 1 [place] [employer] Romy Bailey [id number] Romy Bailey 03/23/2022 2 [email or web address] [place] - PLAN 1 (MEDICARE SUPPLEMENT) [id number] 1 Romy Bailey [id number] Romy Bailey 09/30/2022 1 [place] [employer] Romy Bailey [id number] Romy Bailey 09/30/2022 2 [facility] - PLAN 1 (MEDICARE SUPPLEMENT) [id number] 1 Romy Bailey [id number] Romy Bailey 11/16/2023 1 [place] [employer] Romy Bailey [id number] Romy Anthony Leo 11/16/2023 2 [facility] - PLAN 1 (MEDICARE SUPPLEMENT) [id number] 1 Romy Anthony Anthony Bailey [id number] Romy Anthony Leo 05/16/2024 1 [place] [employer] Romy Anthony Campbellan [id number] [id number] Romy Anthony Leo 05/16/2024 2 [facility] - PLAN 1 (MEDICARE SUPPLEMENT) [id number] 1 Romy Anthony Anthony Bailey [id number] Romy Anthony Leo 08/15/2024 1 [place] [employer] Romy Anthony Leo [id number] [id number] Romy Bailey 08/15/2024 2 [facility] 1 (MEDICARE SUPPLEMENT) [id number] 1 Romy Bailey [id number] Romy Bailey Notes Date Note Type Note Provider Name and Address Organization Details Recorded Time 03/23/2022 text/html Some stiffness i n am, R knee, has healed up well [place]- 10 years AAA u/s- agrees to thisQuit smoking- 30 years ago 2nd covid boostershingles vaccines - utd 3-4 times/nightsnoresno fatiguediscussed sleep med Dr. Verma yearly Bp well controlled usually at goal at homesince chlorthalidone, is urinating more Dental UTDEye exam- UTD Jesus Manuel p5onKgcdocn is good Exercise- got out of habit of walking OLEG TIRADO PA-C [address] [place] [address], [phone], [facility] 03/29/2022 19:11:40 03/23/2022 text/html Risk Assessment and Lifestyle Change Counseling 65+ (Medicare)Reported bypatient.Coronary Artery Disease Risk Assessment:No personal history of coronary artery disease Lung Cancer Risk Assessment:Former smoker Diet:Counseled about eating a diet low in trans and saturated fats and high in fiber, fruits and vegetables; Counseled about decreasing carbohydrates; Counseled about decreasing salt in diet Exercise counseling:Discussed the importance of daily physical activity; Discussed the importance of weight bearing exercise Safety:Counseled about protecting skin from the sun and lowering the risk of skin cancerRisk Assessment and Lifestyle Change Counseling-male 50-64Reported bypatient.Coronary Artery Disease Risk Assessment:Family History of Coronary Artery Disease; Regular exercise program; Eats a diet low in fats and high in fiber;Personal history of hypertension; Lipids in good range; No personal history of diabetes; No use of tobacco; No history of peripheral vascular disease, AAA, or carotid disease; No personal history of coronary artery disease Colon Cancer Risk Assessment:No family history of colon polyps or cancer; No history of adenomatous colon polyps Lung Cancer Risk Assessment:Has used cigarettes; No asbestos exposure Risk for Sexually transmitted disease Assessment:No history of sexually transmitted disease; Monogamous relationship Cognitive/Behavioral Risk Assessment:No history of depression; No family history of depression Safety Risk Assessment:uses helmet for high velocity activities; uses seat belts; No evidence of abuse/neglect Diet:Counseled about eating a diet low in trans and saturated fats and high in fiber, fruits and vegetables; Counseled about decreasing carbohydrates; Counseled about decreasing salt in diet; Discussed the value of a Mediterranean diet , and eating more fruits and vegetables Exercise counseling:Discussed the importance of daily physical activity OLEG TIRADO PA-C [address] [place] [address], [phone], [facility] 03/29/2022 19:11:40 09/30/2022 text/html did check after last [id number] Could do better on exercise, not walking as much nephro yearlylabs q 6 mo OLEG TIRADO PA-C [address] [place] [address], [phone], [facility] 10/07/2022 08:50:39 11/16/2023 text/html Patient presents over phone today to discuss refilling Viagra.Reporting being on Viagra for years without issues. Med helps with ED.Also takes variety of HTN meds. HTN is managed by Dr. Verma from [facility].Denies any episodes of light headedness, dizziness, weakness, change in vision, chest pain, palpitations, shortness of breath, abdominal or back pain. Justin Washington MD [address] [place] [address], [phone], [facility] 11/16/2023 14:23:16 05/16/2024 text/html Risk Assessment and Lifestyle Change Counseling (Medicare)Reported bypatient.Coronary Artery Disease Risk Assessment:No personal history of coronary artery disease Breast Cancer Risk Assessment:No family history of breast cancer; No history of breast cancer or dcis Colon Cancer Risk Assessment:No family history of pre cancerous colon polyps or cancer Lung Cancer Risk Assessment:Former smoker; No asbestos exposure Fracture Risk Assessment:No unexplained fracture; No use of corticosteroids; No anti-seizure medication; Normal bone density; Has adequate calcium intake;Not taking Vitamin D; No chronic use of proton pump inhibitors Cognitive/Behavioral Risk Assessment:No personal history of mental illness;Family history of mental illness Safety Risk Assessment:No grab bars in bathroom; Has rails on steps; No falls; No evidence of abuse/neglect Functional Status:Patient does not have trouble hearing the television or radio when others do not.; Patient does not have to strain or struggle to hear/understand conversations; Patient does not need help with preparing meals, transportation, shopping, taking medicine, managing finances, or other activities of daily living.; Patient does not have visual loss that interferes with daily activities; Does not live alone; Patient was not unsteady and did not take longer than 30 seconds during the timed get up and go test.; Patient reports no falls in the past 6 months. Diet:Counseled about eating a diet low in trans and saturated fats and high in fiber, fruits and vegetables; Counseled about decreasing carbohydrates; Counseled about decreasing salt in diet Exercise counseling:Discussed the importance of daily physical activity; Discussed the importance of weight bearing exercise Safety:Counseled about protecting skin from the sun and lowering the risk of skin cancerRisk Assessment and Lifestyle Change Counseling-male 50-64Reported bypatient.Coronary Artery Disease Risk Assessment:Family History of Coronary Artery Disease; Regular exercise program; Eats a diet low in fats and high in fiber;Personal history of hypertension; Lipids in good range; No personal history of diabetes; No use of tobacco; No history of peripheral vascular disease, AAA, or carotid disease; No personal history of coronary artery disease Colon Cancer Risk Assessment:No family history of colon polyps or cancer; No history of adenomatous colon polyps Lung Cancer Risk Assessment:Has used cigarettes; No asbestos exposure Risk for Sexually transmitted disease Assessment:No history of sexually transmitted disease; Monogamous relationship Cognitive/Behavioral Risk Assessment:No history of depression; No family history of depression Safety Risk Assessment:uses helmet for high velocity activities; uses seat belts; No evidence of abuse/neglect Diet:Counseled about eating a diet low in trans and saturated fats and high in fiber, fruits and vegetables; Counseled about decreasing carbohydrates; Counseled about decreasing salt in diet; Discussed the value of a Mediterranean diet , and eating more fruits and vegetables Exercise counseling:Discussed the importance of daily physical activity 68 year old male here for [facility] wellness [place]- ifobt positive 03/2024, needs colonoscopy. Pt reports he has an appt with GI specialist. AAA u/s- 04-21-22 normal He quit smoking over 25 years ago. He consumes alcohol two to three times a week. He is currently laid off but may return to work for a no-stress job in the summer. He has a family history of heart disease, with both parents having had heart attacks and strokes. Gets annual flu vaccine, has gotten COVID vaccine recently at preferred pharmacy. Due for pneumonia. He will check w/ his pharmacy to see if he has already received. Nocturia 2x/night, no hematuria, no dribbling, feels as he is adequately emptying. Last PSA 2010, normal. Dr. Catracho Verma cash controller at [facility] yearly Bp well controlled on lisinopril 20 mg daily, metoprolol 25 mg ER daily and chlorthalidone 25 mg daily. Dental UTD Eye exam- recently put on ophthalmic drops for glaucoma, has follow up with eye provider. No new vision issues, no headaches, no eye pain. Hearing is good Recent lab 05/09 results show borderline high cholesterol 219 and high triglycerides at 252 mg/dL despite fasting. He acknowledges a lack of regular exercise, although he engages in physical activities like cutting firewood. He is currently on medication for high blood pressure and is under the care of a cash controller for blood pressure management. Recent labs 05/09 indicate dehydration renal 40-1.6-46.9. He reports nocturia, urinating twice a night, which he attributes to chlorthalidone 25 mg tab daily prescribed for blood pressure management. He takes the medication in the morning. No symptoms of excessive thirst, blood in urine, incomplete bladder emptying, or dribbling. He has not had a PSA test since 2010 He has a history of gout and is on allopurinol. No recent joint pain or swelling and no issues with uric acid levels recently. He follows a gout-friendly diet, avoiding high-purine foods like shellfish and beer. CASSIE AGUILAR, LUCERO [address] [place] [address], [phone], [facility] 05/17/2024 09:11:36 08/15/2024 text/html 69 year old male here for follow up CKD: Downtrend in renal function 08-09-24. GFR 43.4, BUN and creat 52 and 1.7 from previous GFR 46.9 and BUN and creat 40 and 1.6 on May 09 2024. Pt reports he has been taking half of chlorthalidone based on his cash controller's recommendations. He was requested to call the nephrology practice within 3 weeks to schedule a follow up Gout: He has a history of elevated uric acid levels and is currently taking 200 mg of allopurinol daily, although his prescription indicates 300 mg daily. Most recent uric acid 7.7. He reports no symptoms of gout, such as joint pain, and has not experienced any recent gout attacks. He has made dietary changes, including reducing beer consumption. HLD: He started atorvastatin 05-16-24 and reports occasional leg aches, which he attributes to aging, unsure if the aches started particularly after initiation of statin therapy. His LDL cholesterol has decreased from 127 to 75 mg/dL since starting the medication. Cholesterol now 162 from 219. Triglycerides now 173 from 252. Elevated PSA: PSA level of 8.19 ng/mL and has been experiencing increased nocturia. No blood in urine or worsening of symptoms since previous visit. No fevers, no chills. Previously with + FIT test, now has appt w/ GI in 2 weeks. CHERELLE Jordan, [facility] 08/29/2024 09:00:18
== END 2024-08-30 11:20 | disposition home or self-care (01) ==
LOC: HO.HKA 10:32
PROVIDERS: Visit Provider Internal Medicine Nephrology
DX: I10 Essential (primary) hypertension (principal); E79.0 Hyperuricemia without signs of inflammatory arthritis and tophaceous disease; N17.9 Acute kidney failure, unspecified; E87.5 Hyperkalemia
CPT/HCPCS: 99214

== ENCOUNTER → 2024-08-30 10:31 | Outpatient (BNVA) | payer MEDICARE, OTHER, SELFPAY | PROVIDERS: Visit Provider Internal Medicine Nephrology | DX: Z13.89 Encounter for screening for other disorder (principal) | CPT/HCPCS: 99212 ==

== ENCOUNTER 2024-08-30 11:43 | Outpatient (REF) | payer MEDICARE, OTHER, SELFPAY ==
--- OUTSIDE RECORDS SUMMARY | 2024-08-30 12:59 | XMS_ITS | Clinical Summary ---
Author Organization [facility] Address [address] [place] [address] Phone Care Team Providers Care Hard Hat Diver Name Role Phone Madison Perez Primary Care Provider [phone] Allergies No known active allergies Medications allopurinol [...] patient's age to complete this topic Insurance [facility] Medicare [facility] Medicare Care Teams Hard Hat Diver Relationship Specialty Start Date End Date Madison Perez [address] [place] [phone] PCP - General 10/01/21
[2024-08-30 13:23] LABS: MANUAL DIFF FLAG NO
[2024-08-30 13:30] LABS: Basophils Percent Auto 0.4 % (0-2); Eosinophils Absolute Auto 0.2 X10*3/uL (0.0-0.4); Eosinophils Percent Auto 1.7 % (0-4); Hematocrit 41.5 % (42.0-52.0); Imm Gran Abs Auto 0.04 X10*3/uL (0.00-0.03); Imm Gran Pct Auto 0.4 % (0.0-0.4); Lymphocytes Absolute Auto 2.3 X10*3/uL (1.2-4.9); Lymphocytes Percent Auto 25.9 % (20-40); Mean Corpuscular HGB Conc 33.7 g/dl (31.0-36.0); Mean Corpuscular Hemoglobin 33.8 pg (27.0-33.0); Mean Corpuscular Volume 100.2 fL (80.0-98.0); Mean Platelet Volume 9.8 fL (9.4-12.4); Monocytes Percent Auto 10.9 % (2-11); Neutrophils Absolute Auto 5.5 x10*3/uL (2.0-8.3); Neutrophils Percent Auto 60.7 % (45-73); Platelet Count 270 X10*3/uL (160-400); Red Blood Count 4.14 X10*6/uL (4.60-5.80); Red Cell Distribution Width 12.7 % (11.0-16.0)
[2024-08-30 13:51] LABS: Appearance Urine Clear; Color Urine Yellow; Glucose Urine UA 250 mg/dL (Negative); Leukocyte Esterase Urine Negative (Negative); Nitrite Urine Negative (Negative); PH 6.5 (5.0-9.0); Urine Blood Negative (Negative); Urine Ketones Negative (Negative); Urine Protein Negative (Neg-Trace)
[2024-08-30 14:45] LABS: Anion Gap 13 (12-20); Blood Urea Nitrogen 34 mg/dL (9-16); Calcium 9.9 mg/dL (8.4-10.2); Carbon Dioxide 24 mmol/L (22-29); Chloride 106 mmol/L (96-108); Estimated Glomerular Filt Rate 52; Iron 133 mcg/dL (45-160); Percent Iron Saturation 48 % (15-50); Potassium 4.7 mmol/L (3.3-5.1); Sodium 138 mmol/L (135-145); Total Iron Binding Capacity 278 mcg/dL (228-428); Unsaturated Iron Binding 145 ug/dL
[2024-08-30 14:52] LABS: Ferritin 1106 ng/mL (20-250)
[2024-08-30 15:02] LABS: Creatinine Urine 100.79 mg/dL; Protein/Creatinine Ratio, Ur 0.09 (<0.2); Total Protein Urine Random 9 mg/dL (<12)
[2024-08-31 16:04] LABS: Myeloperoxidase Antibody <1.0 AI; Proteinase 3 PR3 Antibodies <1.0 AI
[2024-09-05 08:33] LABS: IgA 237 mg/dL (70-320); IgG 957 mg/dL (600-1540); IgM 55 mg/dL (50-300)
== END 2024-08-30 11:44 | disposition home or self-care (01) ==
LOC: HO.10HDL 11:43
PROVIDERS: Referring Provider Physician Assistant; Visit Provider Internal Medicine Nephrology
DX: N17.9 Acute kidney failure, unspecified (principal); E79.0 Hyperuricemia without signs of inflammatory arthritis and tophaceous disease; I10 Essential (primary) hypertension
CPT/HCPCS: 36415; 80051; 81003; 82310; 82565; 82570; 82728; 82784; 83540; 84156; 84520; 85025; 86021; 86334; 99212

== ENCOUNTER 2024-09-11 08:45 | Outpatient (REF) | payer MEDICARE, OTHER, SELFPAY ==
--- NOTE | ~2024-09-11 | US_ITS ---
CLINICAL HISTORY: N17.9 - Acute kidney failure, unspecified Exam: Ultrasound of the kidneys with duplex evaluation of the renal vasculature. Comparison: None. Findings: Right kidney measures 11.0 x 6.1 x 5.8 cm in size. Left kidney measures 10.6 x 5.7 x 4.7 cm in size. Kidneys are of normal echotexture without focal lesion, nephrolithiasis, or hydronephrosis. Duplex ultrasound of the renal vasculature was performed. This included real-time grayscale, color spectral Doppler analysis, and color Doppler flow imaging. Interrogated vessels including the renal arteries, arcuate vessels, and renal veins. Appropriate duplex waveform patterns throughout the renal arteries. Resistive indices throughout the arcuate vessels are within normal limits. Renal veins are patent. Impression: 1. Negative ultrasound of the kidneys. 2. Unremarkable duplex evaluation of the renal vasculature. This document has been electronically signed by: Gordo Telles MD on 09/12/2024 08:23:06
== END 2024-09-11 08:46 | disposition home or self-care (01) ==
LOC: HO.US 08:45
PROVIDERS: Visit Provider Internal Medicine Nephrology
DX: N17.9 Acute kidney failure, unspecified (principal); I10 Essential (primary) hypertension
CPT/HCPCS: 76775; 93975

== ENCOUNTER → 2024-09-11 08:48 | Outpatient (BNV) | payer MEDICARE, OTHER, SELFPAY | PROVIDERS: Visit Provider Radiology Diagnostic Radiology | DX: N17.9 Acute kidney failure, unspecified (principal) | CPT/HCPCS: 76775; 93975 ==

== ENCOUNTER 2024-09-29 13:58 | Outpatient (AMB) | payer MEDICARE, OTHER, SELFPAY ==
--- OUTSIDE RECORDS SUMMARY | 2024-09-29 14:00 | XMS_ITS | Data Portability ---
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 Please visit our website [employer] for more patient resources. As part of [...] Organization Details Last Modified Time Details Appointments Medical Managemen t 30 2024 08:30A M CASSIE AGUILAR DNP Not available Not available Not available Lab uric acid, serum or plasma 2024 025 [facility], [address] [place] [address], [id number], 08/15/2024 14:58:18 lipid panel, serum 2024 025 [facility], [address] [place] [address], [id number], 08/15/2024 08:58:59 CMP, serum or plasma 2024 025 [facility], [address] [place] [address], [id number], 08/15/2024 14:58:17 CMP, serum or plasma 2024 025 [facility], [address] [place] [address], [id number], 08/09/2024 11:56:42 PSA, serum or plasma 2024 025 [facility], [address] [place] [address], [address], 08/09/2024 10:40:16 uric acid, serum or plasma 2024 025 [facility], [address] [place] [address], 609[address], 08/09/2024 11:56:43 lipid panel, serum 2024 025 [facility], [address] [place] [address], [address], 08/09/2024 11:56:43 Referral None recorded. Procedures None recorded. Surgeries None recorded. Imaging US, abdominal aorta 2021 023 [facility] (Imaging), [address], [place], [address], 04/21/2022 09:23:34 Medication Orders atorvasta tin 20 mg tablet 2024 025 [facility] [employer] [facility], [address], [place], [place], [id number], 05/16/2024 12:09:04 sildenafi l 50 mg tablet 2023 024 [facility], [address], [place], [place], [id number], 11/16/2023 13:40:46 Patient TargetsNo targets recorded. Patient Instructions Encounter Date Encounter Id Patient Instructions Last Modified By Organization Details Last Modified Time 03/23/2022 [id number] high cholesterol lifestyle changes Not available 03/29/2022 [...] worry, expense and possibly shorter life expectancy. Not available 03/23/2022 09:13:01 09/30/2022 [id number] Prostate Cancer Screening using PSA was discussed. [...] expectancy. [email or web address] Not available 09/30/2022 15:31:18 05/16/2024 [id number] well visit, over 65: care instructions [email or web address] Not available 05/17/2024 09:11:33 08/15/2024 [id number] CCM: The provider and patient discussed the [...] furth er confi rmati on Not Available [address], [address], 03/20/2022 09:44:50 03/19/20 22 03/20/2022 HGB A1C estimated average glucose 116.9 mg/dL Not Available [address], [address], 03/20/2022 09:44:50 03/19/20 22 03/20/2022 MICRO ALBUM IN/CR EATIN INE RATIO PANEL , URINE microalbumin 6.9 mg/L 1.3-20 .0 Not Available [address], [address], 03/20/2022 13:14:40 03/19/20 22 03/20/2022 MICRO ALBUM IN/CR EATIN INE RATIO PANEL , URINE creatinine urine 112.0 mg/dL 30.0-1 25.0 Not Available [address], [address], 03/20/2022 13:14:40 03/19/20 22 03/20/2022 MICRO ALBUM IN/CR EATIN INE RATIO PANEL , URINE microalb/cre at ratio 6.2 mg/g_ creat 0.0-29 .0 Not Available [address], [address], 03/20/2022 13:14:40 03/19/20 22 03/23/2022 COMP. METAB OLIC PANEL glucose 88 mg/dL 70-100 Not Available [address], [address], 03/23/2022 10:26:00 03/19/20 22 03/23/2022 COMP. METAB OLIC PANEL BUN 34 mg/dL 7-18 high Not Available [address], [address], 03/23/2022 10:26:00 03/19/20 22 03/23/2022 COMP. METAB OLIC PANEL creatinine 1.3 mg/dL 0.8-1. 3 Not Available [address], [address], 03/23/2022 10:26:00 03/19/20 22 03/23/2022 COMP. METAB OLIC PANEL B/C 26.2 ratio Not Available [address], [address], 03/23/2022 10:26:00 03/19/20 22 03/23/2022 COMP. METAB [...] be used in pregn giovanna. Not Available [address], [address]131, 03/23/2022 10:26:00 03/19/20 22 03/23/2022 COMP. METAB OLIC PANEL sodium 136 mmol/ L 136-14 5 Not Available [address], [address], 03/23/2022 10:26:00 03/19/20 22 03/23/2022 COMP. METAB OLIC PANEL potassium 4.8 mmol/ L 3.5-5. 1 Not Available [address], [address]204, 03/23/2022 10:26:00 03/19/20 22 03/23/2022 COMP. METAB OLIC PANEL chloride 99 mmol/ L 96-107 Not Available [address], [address]24, 03/23/2022 10:26:00 03/19/20 22 03/23/2022 COMP. METAB OLIC PANEL anion gap 6.5 5.0-15 .0 Not Available [address], 94[address], 03/23/2022 10:26:00 03/19/20 22 03/23/2022 COMP. METAB OLIC PANEL CO2 31 mmol/ L 21-32 Not Available [address], [address], 03/23/2022 10:26:00 03/19/20 22 03/23/2022 COMP. METAB OLIC PANEL calcium 9.5 mg/dL 8.5-10 .3 Not Available [address], [address]34, 03/23/2022 10:26:00 03/19/20 22 03/23/2022 COMP. METAB OLIC PANEL total protein 6.8 g/dL 6.4-8. 2 Not Available [address], [address], 03/23/2022 10:26:00 03/19/20 22 03/23/2022 COMP. METAB OLIC PANEL albumin 4.3 g/dL 3.4-5. 0 Not Available [address], [address], 03/23/2022 10:26:00 03/19/20 22 03/23/2022 COMP. METAB OLIC PANEL globulin 2.5 g/dL Not Available [address], [address]26, 03/23/2022 10:26:00 03/19/20 22 03/23/2022 COMP. METAB OLIC PANEL A/G 1.7 ratio 0.8-2. 0 Not Available [address], 75874, 03/23/2022 10:26:00 03/19/20 22 03/23/2022 COMP. METAB OLIC PANEL total bilirubin 0.60 mg/dL 0.00-1 .00 Not Available [address], [address], 03/23/2022 10:26:00 03/19/20 22 03/23/2022 COMP. METAB OLIC PANEL AST 31 U/L 0-37 Not Available [address], 64761, 03/23/2022 10:26:00 03/19/20 22 03/23/2022 COMP. METAB OLIC PANEL ALT 35 U/L 6-63 Not Available [address], [address]16, 03/23/2022 10:26:00 03/19/20 22 03/23/2022 COMP. METAB OLIC PANEL alk. phos. 81 U/L 50-136 Not Available [address], [address], 03/23/2022 10:26:00 03/19/20 22 03/23/2022 LIPID PANEL cholesterol 183 mg/dL <200 mg/dl Aminah able 200-2 39 mg/dl Borde rline High >240 mg/dl High Not Available [address], [address], 03/23/2022 10:26:01 03/19/20 22 03/23/2022 LIPID PANEL triglyceride s 173 mg/dL <150 mg/dL Alfreda l 150-1 99 mg/dL Borde rline High 200-4 99 mg/dL High >500 mg/dL Very High Not Available [address], [address], 03/23/2022 10:26:01 03/19/20 22 03/23/2022 LIPID PANEL direct HDL 47 mg/dL <40 mg/dl - Major Risk for CHD >60 mg/dl - Negat re Risk for CHD Not Available [address], [address], 03/23/2022 10:26:01 03/19/20 22 03/23/2022 URIC ACID uric acid 7.2 mg/dL 3.5-7. 2 Not Available [address], [address], 03/23/2022 10:26:02 03/19/20 22 03/23/2022 LDL - CALCU LATED LDL - calculated 101.4 RISK CATEG ORY LDL GOAL _ CHD or CHD Risk Equiv alent s <100 mg/dl (10-y ear risk >20%) 2+ Risk Facto rs <130 mg/dl (10-y ear risk <= 20%) 0-1 Risk Facto r <160 mg/dl Almo st all peopl e with 0-1 risk facto r have a 10 year risk <10%, thus 10 year risk asses ment in peopl e with 0-1 risk facto r is not neces katheryn. Not Available [address], [address], 03/23/2022 10:26:03 09/19/19 23 09/18/2022 RENAL PANEL glucose 115 mg/dL 70-100 high Not Available [address], [address], 09/18/2022 15:07:30 09/19/19 23 09/18/2022 RENAL PANEL BUN 27 mg/dL 7-18 high Not Available [address], 8[address], 09/18/2022 15:07:30 09/19/19 23 09/18/2022 RENAL PANEL creatinine 1.3 mg/dL 0.8-1. 3 Not Available [address], [address]75, 09/18/2022 15:07:30 09/19/19 23 09/18/2022 RENAL PANEL B/C 20.8 ratio Not Available [address], [address]47, 09/18/2022 15:07:30 09/19/19 23 09/18/2022 RENAL PANEL [...] Colla borat ion (CKD- EPI) Equat ion (Cinthiae r et. al 2020) as recom arlet d by the [facility] at[facility] . eGFR is based on age, serum creat inine , and sex. CKD-E PI does not calcu late eGFR by race, does not apply to child jose martin (age <18 years ), and shoul d not be used in pregn giovanna. Not Available [address], [address], 09/18/2022 15:07:30 09/19/19 23 09/18/2022 RENAL PANEL sodium 138 mmol/ L 136-14 5 Not Available [address], 62505, 09/18/2022 15:07:30 09/19/19 23 09/18/2022 RENAL PANEL potassium 5.1 mmol/ L 3.5-5. 1 Not Available [address], [address]244, 09/18/2022 15:07:30 09/19/19 23 09/18/2022 RENAL PANEL chloride 101 mmol/ L 96-107 Not Available [address], 58293, 09/18/2022 15:07:30 09/19/19 23 09/18/2022 RENAL PANEL anion gap 10.4 5.0-15 .0 Not Available [address], 07329, 09/18/2022 15:07:30 09/19/19 23 09/18/2022 RENAL PANEL CO2 27 mmol/ L 21-32 Not Available [address], 56686, 09/18/2022 15:07:30 09/19/19 23 09/18/2022 RENAL PANEL calcium 9.3 mg/dL 8.5-10 .3 Not Available [address], [address]59, 09/18/2022 15:07:30 09/19/19 23 09/18/2022 RENAL PANEL albumin 4.2 g/dL 3.4-5. 0 Not Available [address], 70698, 09/18/2022 15:07:30 09/19/19 23 09/18/2022 RENAL PANEL phosphorous 3.20 mg/dL 2.50-4 .90 Not Available [address], [address], 09/18/2022 15:07:30 09/19/19 23 09/19/2022 PROTE IN, TOTAL W/CRE AT, RANDO M URINE creatinine, random urine 89 mg/dL 20-320 normal Not Available [facility] [address], [address], 09/19/2022 19:37:30 09/19/19 23 09/19/2022 PROTE IN, TOTAL W/CRE AT, RANDO M URINE protein/crea tinine ratio 124 mg/g_ creat 25-148 normal Not Available [facility] [address], [address], 09/19/2022 19:37:30 09/19/19 23 09/19/2022 PROTE IN, TOTAL W/CRE AT, RANDO M URINE protein/crea tinine ratio 0.124 mg/mg _crea t 0.025- 0.148 normal Not Available [facility] [address], [address], 09/19/2022 19:37:30 09/19/19 23 09/19/2022 PROTE IN, TOTAL W/CRE AT, RANDO M URINE protein, total, random ur 11 mg/dL 5-25 normal Not Available [facility] [address] [place] [address], [place], [address], 09/19/2022 19:37:30 09/19/19 23 09/21/2022 LIPID PANEL cholesterol 205 mg/dL <200 mg/dl Aminah able 200-2 39 mg/dl Borde rline High >240 mg/dl High Not Available [address], [address], 09/21/2022 09:53:40 09/19/1909/21/2022 LIPID PANEL triglyceride s 273 mg/dL high <150 mg/dL Alfreda l 150-1 99 mg/dL Borde rline High 200-4 99 mg/dL High >500 mg/dL Very High Not Available [address], [address], 09/21/2022 09:53:40 09/19/19 23 09/21/2022 LIPID PANEL direct HDL 44 mg/dL <40 mg/dl - Major Risk for CHD >60 mg/dl - Negat re Risk for CHD Not Available [address], [address], 09/21/2022 09:53:40 09/19/1909/21/2022 DIREC T LDL direct LDL 113 mg/dL RISK CATEG ORY LDL GOAL _ CHD or CHD Risk Equiv alent s <100 mg/dl (10-y ear risk >20%) 2+ Risk Facto rs <130 mg/dl (10-y ear risk <= 20%) 0-1 Risk Facto r <160 mg/dl Almo st all peopl e with 0-1 risk facto r have a 10 year risk <10%, thus 10 year risk asses ment in peopl e with 0-1 risk facto r is not neces katheryn. Not Available [address], [address], 09/21/2022 12:23:59 04/30/19 24 04/30/2023 HGB A1C [...] furth er confi rmati on Not Available [address], [address], 04/30/2023 11:07:53 04/30/19 24 04/30/2023 HGB A1C estimated average glucose 125.5 mg/dL Not Available [address], [address]703, 04/30/2023 11:07:53 04/30/19 24 04/30/2023 BASIC METAB OLIC PANEL glucose 110 mg/dL 70-100 high Not Available [address], [address], 04/30/2023 14:12:23 04/30/19 24 04/30/2023 BASIC METAB OLIC PANEL BUN 28 mg/dL 7-18 high Not Available [address], [address]79, 04/30/2023 14:12:23 04/30/19 24 04/30/2023 BASIC METAB OLIC PANEL creatinine 1.4 mg/dL 0.8-1. 3 high Not Available [address], [address], 04/30/2023 14:12:23 04/30/19 24 04/30/2023 BASIC METAB OLIC PANEL B/C 20.0 ratio Not Available [address], [address], 04/30/2023 14:12:23 04/30/19 24 04/30/2023 BASIC METAB [...] be used in pregn giovanna. Not Available [address], [address], 04/30/2023 14:12:23 04/30/19 24 04/30/2023 BASIC METAB OLIC PANEL sodium 136 mmol/ L 136-14 5 Not Available [address], 95882, 04/30/2023 14:12:23 04/30/19 24 04/30/2023 BASIC METAB OLIC PANEL potassium 5.0 mmol/ L 3.5-5. 1 Not Available [address], 61517, 04/30/2023 14:12:23 04/30/19 24 04/30/2023 BASIC METAB OLIC PANEL chloride 100 mmol/ L 96-107 Not Available [address], 95384, 04/30/2023 14:12:23 04/30/19 24 04/30/2023 BASIC METAB OLIC PANEL anion gap 8.6 5.0-15 .0 Not Available [address], [address]99, 04/30/2023 14:12:23 04/30/19 24 04/30/2023 BASIC METAB OLIC PANEL CO2 27 mmol/ L 21-32 Not Available [address], [address]74, 04/30/2023 14:12:23 04/30/19 24 04/30/2023 BASIC METAB OLIC PANEL calcium 9.7 mg/dL 8.5-10 .3 Not Available [address], [address], 04/30/2023 14:12:23 04/30/19 24 04/30/2023 URIC ACID uric acid 6.1 mg/dL 3.5-7. 2 Not Available [address], [address], 04/30/2023 14:12:24 05/05/19 24 05/06/2023 PROTE IN, TOTAL W/CRE AT, RANDO M URINE creatinine, random urine 98 mg/dL 20-320 normal Not Available [facility] [address], [address], 05/06/2023 16:23:30 05/05/19 24 05/06/2023 PROTE IN, TOTAL W/CRE AT, RANDO M URINE protein/crea tinine ratio 112 mg/g_ creat 25-148 normal Not Available [facility] [address], [address], 05/06/2023 16:23:30 05/05/19 24 05/06/2023 PROTE IN, TOTAL W/CRE AT, RANDO M URINE protein/crea tinine ratio 0.112 mg/mg _crea t 0.025- 0.148 normal Not Available [facility] [address], [address], 05/06/2023 16:23:30 05/05/19 24 05/06/2023 PROTE IN, TOTAL W/CRE AT, RANDO M URINE protein, total, random ur 11 mg/dL 5-25 normal Not Available [facility] [address], [place], [address], 05/06/2023 16:23:30 12/17/19 24 12/20/2023 ELECT ROLYT ES sodium 138 mmol/ L 136-14 5 Not Available [address], [address], 12/20/2023 12:35:55 12/17/19 24 12/20/2023 ELECT ROLYT ES potassium 4.7 mmol/ L 3.5-5. 1 Not Available [address], [address], 12/20/2023 12:35:55 12/17/19 24 12/20/2023 ELECT ROLYT ES chloride 102 mmol/ L 96-107 Not Available [address], [address], 12/20/2023 12:35:55 12/17/19 24 12/20/2023 ELECT ROLYT ES anion gap 10.0 5.0-15 .0 Not Available [address], [address], 12/20/2023 12:35:55 12/17/19 24 12/20/2023 ELECT ROLYT ES CO2 26 mmol/ L 21-32 Not Available [address], [address], 12/20/2023 12:35:55 12/17/19 24 12/20/2023 BUN BUN 25 mg/dL 7-18 high Not Available [address], [address]695, 12/20/2023 12:35:55 12/17/19 24 12/20/2023 CREAT ININE creatinine 1.4 mg/dL 0.8-1. 3 high Not Available [address], [address], 12/20/2023 12:35:55 12/17/1912/20/2023 CREAT ININE GFR 55.1 mL/mi n abnormal [...] be used in pregn giovanna. Not Available [address], [address], 12/20/2023 12:35:55 12/17/1912/20/2023 CALCI UM calcium 9.1 mg/dL 8.5-10 .3 Not Available [address], [address], 12/20/2023 12:35:55 12/17/19 24 12/20/2023 URIC ACID uric acid 7.2 mg/dL 3.5-7. 2 Not Available [address], [address], 12/20/2023 12:35:56 03/23/20 24 03/28/2024 IMMUN OCHEM ICAL FECAL OCCUL T BLOOD ifobt POSITI VE negati ve positive Not Available [address], [address], 03/28/2024 11:48:12 05/09/1905/09/2024 HGB A1C hemoglobin A1C 5.8 % 4.8-6. [...] furth er confi rmati on Not Available [address], [address], 05/09/2024 10:42:56 05/09/1905/09/2024 HGB A1C estimated average glucose 119.8 mg/dL Not Available [address], [address], 05/09/2024 10:42:56 05/09/1905/10/2024 BASIC METAB OLIC PANEL glucose 119 mg/dL 70-100 high Not Available [address], [address], 05/10/2024 13:35:21 05/09/19 25 05/10/2024 BASIC METAB OLIC PANEL BUN 40 mg/dL 7-18 high Not Available [address], [address]34, 05/10/2024 13:35:21 05/09/19 25 05/10/2024 BASIC METAB OLIC PANEL creatinine 1.6 mg/dL 0.8-1. 3 high Not Available [address], [address], 05/10/2024 13:35:21 05/09/19 25 05/10/2024 BASIC METAB OLIC PANEL B/C 25.0 ratio Not Available [address], [address], 05/10/2024 13:35:21 05/09/19 25 05/10/2024 BASIC METAB OLIC PANEL GFR 46.9 mL/mi [...] be used in pregn giovanna. Not Available [address], [address], 05/10/2024 13:35:21 05/09/1905/10/2024 BASIC METAB OLIC PANEL sodium 139 mmol/ L 136-14 5 Not Available [address], [address], 05/10/2024 13:35:21 05/09/1905/10/2024 BASIC METAB OLIC PANEL potassium 5.0 mmol/ L 3.5-5. 1 Not Available [address], [address]902, 05/10/2024 13:35:21 05/09/1905/10/2024 BASIC METAB OLIC PANEL chloride 100 mmol/ L 96-107 Not Available [address], [address]11[address], 05/10/2024 13:35:21 05/09/1905/10/2024 BASIC METAB OLIC PANEL anion gap 11.9 5.0-15 .0 Not Available [address], [address], 05/10/2024 13:35:21 05/09/1905/10/2024 BASIC METAB OLIC PANEL CO2 27 mmol/ L 21-32 Not Available [address], [address], 05/10/2024 13:35:21 05/09/1905/10/2024 BASIC METAB OLIC PANEL calcium 10.1 mg/dL 8.5-10 .3 Not Available [address], [address], 05/10/2024 13:35:21 05/09/1905/10/2024 LIPID PANEL cholesterol 219 mg/dL <200 mg/dl Aminah able 200-2 39 mg/dl Borde rline High >240 mg/dl High Not Available [address], [address]54, 05/10/2024 13:35:22 05/09/19 25 05/10/2024 LIPID PANEL triglyceride s 252 mg/dL high <150 mg/dL Alfreda l 150-1 99 mg/dL Borde rline High 200-4 99 mg/dL High >500 mg/dL Very High Not Available [address], [address], 05/10/2024 13:35:22 05/09/1905/10/2024 LIPID PANEL direct HDL 49 mg/dL <40 mg/dl - Major Risk for CHD >60 mg/dl - Negat re Risk for CHD Not Available [address], [address], 05/10/2024 13:35:22 05/09/1905/10/2024 DIREC T LDL direct LDL 127 mg/dL RISK CATEG ORY LDL GOAL _ CHD or CHD Risk Equiv alent s <100 mg/dl (10-y ear risk >20%) 2+ Risk Facto rs <130 mg/dl (10-y ear risk <= 20%) 0-1 Risk Facto r <160 mg/dl Almo st all peopl e with 0-1 risk facto r have a 10 year risk <10%, thus 10 year risk asses ment in peopl e with 0-1 risk facto r is not connor cernay. Not Available [address], [address], 05/10/2024 14:43:30 08/10/19 25 08/09/2024 PSA PSA 8.19 NG/mL 0.00-4 .00 high Not Available [address], [address], 08/09/2024 10:40:16 08/10/19 25 08/09/2024 COMP. METAB OLIC PANEL glucose 115 mg/dL 70-100 high Not Available [address], 61409, 08/09/2024 11:56:42 08/10/19 25 08/09/2024 COMP. METAB OLIC PANEL BUN 52 mg/dL 7-18 high Not Available [address], 81662, 08/09/2024 11:56:42 08/10/19 25 08/09/2024 COMP. METAB OLIC PANEL creatinine 1.7 mg/dL 0.8-1. 3 high Not Available [address], 28270, 08/09/2024 11:56:42 08/10/19 25 08/09/2024 COMP. METAB OLIC PANEL B/C 30.6 ratio Not Available [address], 22005, 08/09/2024 11:56:42 08/10/19 25 08/09/2024 COMP. METAB [...] be used in pregn giovanna. Not Available [address], [address]77, 08/09/2024 11:56:42 08/10/19 25 08/09/2024 COMP. METAB OLIC PANEL sodium 138 mmol/ L 136-14 5 Not Available [address], [address], 08/09/2024 11:56:42 08/10/19 25 08/09/2024 COMP. METAB OLIC PANEL potassium 5.5 mmol/ L 3.5-5. 1 high no hemol ysis obser louis Not Available [address], [address]30, 08/09/2024 11:56:42 08/10/19 25 08/09/2024 COMP. METAB OLIC PANEL chloride 102 mmol/ L 96-107 Not Available [address], [address]40, 08/09/2024 11:56:42 08/10/19 25 08/09/2024 COMP. METAB OLIC PANEL anion gap 12.5 5.0-15 .0 Not Available [address], 40583, 08/09/2024 11:56:42 08/10/19 25 08/09/2024 COMP. METAB OLIC PANEL CO2 24 mmol/ L 21-32 Not Available [address], [address]9563, 08/09/2024 11:56:42 08/10/19 25 08/09/2024 COMP. METAB OLIC PANEL calcium 10.2 mg/dL 8.5-10 .3 Not Available [address], 47283, 08/09/2024 11:56:42 08/10/19 25 08/09/2024 COMP. METAB OLIC PANEL total protein 7.0 g/dL 6.4-8. 2 Not Available [address], [address]9836, 08/09/2024 11:56:42 08/10/19 25 08/09/2024 COMP. METAB OLIC PANEL albumin 4.1 g/dL 3.4-5. 0 Not Available [address], 33706, 08/09/2024 11:56:42 08/10/19 25 08/09/2024 COMP. METAB OLIC PANEL globulin 2.9 g/dL Not Available [address], [address]32, 08/09/2024 11:56:42 08/10/19 25 08/09/2024 COMP. METAB OLIC PANEL A/G 1.4 ratio 0.8-2. 0 Not Available [address], [address]13, 08/09/2024 11:56:42 08/10/19 25 08/09/2024 COMP. METAB OLIC PANEL total bilirubin 0.80 mg/dL 0.00-1 .00 Not Available [address], [address]77, 08/09/2024 11:56:42 08/10/19 25 08/09/2024 COMP. METAB OLIC PANEL AST 28 U/L 0-37 Not Available [address], 11549, 08/09/2024 11:56:42 08/10/19 25 08/09/2024 COMP. METAB OLIC PANEL ALT 38 U/L 6-63 Not Available [address], [address]78, 08/09/2024 11:56:42 08/10/1908/09/2024 COMP. METAB OLIC PANEL alk. phos. 75 U/L 50-136 Not Available [address], [address]758, 08/09/2024 11:56:42 08/10/19 25 08/09/2024 LIPID PANEL cholesterol 162 mg/dL <200 mg/dl Aminah able 200-2 39 mg/dl Borde rline High >240 mg/dl High Not Available [address], [address], 08/09/2024 11:56:43 08/10/19 25 08/09/2024 LIPID PANEL triglyceride s 173 mg/dL <150 mg/dL Alfreda l 150-1 99 mg/dL Borde rline High 200-4 99 mg/dL High >500 mg/dL Very High Not Available [address], [address], 08/09/2024 11:56:43 08/10/1908/09/2024 LIPID PANEL direct HDL 52 mg/dL <40 mg/dl - Major Risk for CHD >60 mg/dl - Negat re Risk for CHD Not Available [address], [address]774, 08/09/2024 11:56:43 08/10/19 25 08/09/2024 URIC ACID uric acid 7.7 mg/dL 3.5-7. 2 high Not Available [address], [address], 08/09/2024 11:56:43 08/10/1908/09/2024 LDL - CALCU LATED LDL - calculated 75 RISK CATEG ORY LDL GOAL _ CHD or CHD Risk Equiv alent s <100 mg/dl (10-y ear risk >20%) 2+ Risk Facto rs <130 mg/dl (10-y ear risk <= 20%) 0-1 Risk Facto r <160 mg/dl [facility] all peopl e with 0-1 risk facto r have a 10 year risk <10%, thus 10 year risk asses ment in peopl e with 0-1 risk facto r is not reievy campa. Not Available [address], [address], 08/09/2024 11:56:44 08/16/19 25 08/15/2024 COMP. METAB OLIC PANEL glucose 116 mg/dL 70-100 high Not Available [address], [address]95, 08/15/2024 14:58:17 08/16/19 25 08/15/2024 COMP. METAB OLIC PANEL BUN 53 mg/dL 7-18 high Not Available [address], [address], 08/15/2024 14:58:17 08/16/19 25 08/15/2024 COMP. METAB OLIC PANEL creatinine 1.5 mg/dL 0.8-1. 3 high Not Available [address], [address], 08/15/2024 14:58:17 08/16/19 25 08/15/2024 COMP. METAB OLIC PANEL B/C 35.3 ratio Not Available [address], [address], 08/15/2024 14:58:17 08/16/19 25 08/15/2024 COMP. METAB OLIC PANEL GFR 50.4 mL/mi [...] be used in pregn giovanna. Not Available [address], [address], 08/15/2024 14:58:17 08/16/1908/15/2024 COMP. METAB OLIC PANEL sodium 141 mmol/ L 136-14 5 Not Available [address], [address], 08/15/2024 14:58:17 08/16/1908/15/2024 COMP. METAB OLIC PANEL potassium 5.7 mmol/ L 3.5-5. 1 high Not Available [address], [address], 08/15/2024 14:58:17 08/16/1908/15/2024 COMP. METAB OLIC PANEL chloride 105 mmol/ L 96-107 Not Available [address], [address], 08/15/2024 14:58:17 08/16/1908/15/2024 COMP. METAB OLIC PANEL anion gap 13.3 5.0-15 .0 Not Available [address], [address], 08/15/2024 14:58:17 08/16/1908/15/2024 COMP. METAB OLIC PANEL CO2 23 mmol/ L 21-32 Not Available [address], [address], 08/15/2024 14:58:17 08/16/19 25 08/15/2024 COMP. METAB OLIC PANEL calcium 10.1 mg/dL 8.5-10 .3 Not Available [address], [address], 08/15/2024 14:58:17 08/16/19 25 08/15/2024 COMP. METAB OLIC PANEL total protein 7.2 g/dL 6.4-8. 2 Not Available [address], [address], 08/15/2024 14:58:17 08/16/19 25 08/15/2024 COMP. METAB OLIC PANEL albumin 4.2 g/dL 3.4-5. 0 Not Available [address], [address], 08/15/2024 14:58:17 08/16/19 25 08/15/2024 COMP. METAB OLIC PANEL globulin 3.0 g/dL Not Available [address], [address], 08/15/2024 14:58:17 08/16/19 25 08/15/2024 COMP. METAB OLIC PANEL A/G 1.4 ratio 0.8-2. 0 Not Available [address], [address], 08/15/2024 14:58:17 08/16/19 25 08/15/2024 COMP. METAB OLIC PANEL total bilirubin 0.70 mg/dL 0.00-1 .00 Not Available [address], [address], 08/15/2024 14:58:17 08/16/19 25 08/15/2024 COMP. METAB OLIC PANEL AST 25 U/L 0-37 Not Available [address], [address], 08/15/2024 14:58:17 08/16/19 25 08/15/2024 COMP. METAB OLIC PANEL ALT 34 U/L 6-63 Not Available [address], [address], 08/15/2024 14:58:17 08/16/19 25 08/15/2024 COMP. METAB OLIC PANEL alk. phos. 82 U/L 50-136 Not Available [address], [address], 08/15/2024 14:58:17 08/16/19 25 08/15/2024 URIC ACID uric acid 6.5 mg/dL 3.5-7. 2 Not Available [address], [address], 08/15/2024 14:58:18 04/21/19 23 04/21/2022 , abdom inal aorta CLINIC AL HISTOR Y: Screen ing. TECHNI QUE: 2D sonogr aphy of the aorta perfor med. COMPAR GUNNAR: None. FINDIN GS: Proxim al aorta 2.5 x 2.4 cm. Mid aorta 1.9 x 2.2 cm. Distal aorta 2.4 x 2.6 cm. The iliac arteri es are normal . IMPRES SONIA: The aorta is normal sized. Readin g Physic jose: Nilesh Dee ms [facility] (Imaging) [address] , [place], [address], 05/19/2022 11:41:45 Result Notes None recorded. Procedures Surgical History Date Name Laterality Status Provider Name and Address Organization Details Recorded Time 5 Mechelle - Colonoscopy completed Romy Min MD [address] [place] [address], [id number], [facility] 09/20/2024 10:25:06 Imaging Results None recorded. Procedure Notes None recorded. Medical Equipment None Reported. Allergies No known drug allergies Medications Name Sig Start Date Stop Date [...] Not Available Not Available No t Available GaviLyte- G 236 gram-22.7 4 gram-6.74 gram-5.86 gram oral solution 4000ML ORALLY. PT HAS INSTRUCT IONS 1 DAYS active Not Available Not Available No t Available Colcrys 0.6 mg tablet Take 1 tablet every day by oral route. 2011 active Not Available Not Available Not Avai lable celery seed oil (bulk) active Not Available Not Available Not Available Fluarix Quad [id number] (PF) 60 mcg (15 mcg x 4)/0.5 mL IM syringe TO BE ADMINIST ERED BY A PHARMACI ST 09/16 completed Not Available Not Available Not Available chlorthal idone 12.5 mg tablet Take 1 tablet every day by oral route. active Not Available Not Available No t Available Vitals None Recorded Social History Question Answer Notes LastModified by Organizat ion Details LastModified Time Do You Have An Advance Directive? No [...] Or The Highest Degree You Have Received? [id number] Information not available 03/21/2021 Have There Been Any Changes To Your Family Or Social Situation? Yes Has A New Grandchild 03/23/22mh 05/16/24 Information not available 05/16/2024 Are There Any Guns Present In Your Home? Yes 05/16/24 Information not available 05/16/2024 Do You Use Insect Repellent Routinely? No 05/16/24 Information not available 05/16/2024 Live Alone Or With Others? With Others [email or web address] Information not available 09/12/2020 Patient Has Health Care Proxy Signed And In Chart Yes [email or web address] Information not available 02/27/2019 CCM Consent Discussion 08/15/2024 [email or web address] Information not available 09/15/2024 Marital Status Information not available 02/26/2011 Mosquito Repellent Used Routinely No [email or web address] Information not available 02/26/2011 What Was The Date Of Your Most Recent Tobacco Screening? 08/15/2024 03/23/22 [email or web address] Information not available 08/15/2024 How Many Children Do You Have? 2 Daughters Information not available 10/06/2010 What Is Your Current Pack Years? 10packyears [email or web address] Information not available 11/05/2023 What Is Your Relationship Status? Information not available 03/21/2021 Do You Use Your Seat Belt Or Car Seat Routinely? Yes 05/16/24 Information not available 05/16/2024 Seat Belts Used Routinely Yes [email or web address] Information not available 02/26/2011 Smoke Alarm In [...] Functional Status Question Answer Note LastModified by Organizat ion Details LastModified Time Do you use any illicit or recreational drugs? No [email or web address] Information not available 03/23/2022 What is your level of alcohol consumption? Occasional a few twice a week. 08/08/14 sw 05/16/24 Information not available 05/16/2024 Do you or have you ever used smokeless tobacco? Never used smokeless tobacco Information not available 02/15/2019 Do you have difficulty doing errands alone? 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 No Information not available 07/11/2013 Do you or have you ever used e-cigarettes or vape? Never used electronic cigarettes Information not available 02/15/2019 What is your exercise level? Occasional Walks regularlytt Information not available 05/16/2024 Mental Status Question [...] sister. Medical History No medical history recorded. Past Encounters Encounter ID Performer Location Encounter Start Date Encounter Closed Date Diagnosis/Indication Diagnosis SNOMED-CT Code Diagnosis ICD10 Code Diagnosis Note [id number] [facility], [facility] [place] [address] 08/10/2001 11:15:00 05/02/2008 02:02:29 [id number] Guerda Rondon MD , [facility] [place] [address] [place] [address] 11/24/2001 10:35:25 05/02/2008 02:02:29 [id number] Dulce CRUZ , [facility] [place] [address] [place] [address] 02/09/2002 11:04:29 05/02/2008 02:02:29 [id number] [facility] [place] [address] [place] [address] 02/16/2002 07:51:09 05/02/2008 02:02:29 [id number] Dulce CRUZ , [facility] [place] [address] [place] [address] 03/27/2002 08:48:09 05/02/2008 02:02:29 [id number] KVNG Tipton, [facility] [place] [address] [place] [address] 06/20/2002 11:00:52 05/02/2008 02:02:29 [id number] TAMICA Kwan, [facility] [place] [address] [place] [address] 03/02/2007 09:38:48 05/02/2008 02:02:29 [id number] [facility] - [address] [place] [address] 03/08/2007 07:11:02 03/08/2007 07:11:08 [id number] TAMICA Kwan, [facility] [place] [address] [place] [address] 03/22/2007 07:48:04 05/02/2008 02:02:29 [id number] [facility] - [address] [place] [address] 03/22/2007 08:56:12 03/22/2007 08:56:18 [id number] [facility] - [address] [place] [address] 04/26/2007 09:20:54 04/26/2007 09:21:02 [id number] [facility] - [address] [place] [address] 05/31/2007 11:19:00 05/31/2007 11:19:08 [id number] Bhupendra Perkins, OD [facility], [address] [place] [address] 06/16/2007 07:47:40 06/16/2007 09:34:06 [id number] TAMICA Kwan, [facility] [place] [address] [place] [address] 06/17/2007 08:14:33 05/02/2008 02:02:29 [id number] Bhupendra Perkins, OD [facility], [address] [place] [address] 06/22/2007 15:21:44 06/23/2007 07:27:50 [id number] [facility], ADRIANA MELENDEZ MD ASP, [address] [place] [address] 07/05/2007 07:09:53 07/06/2007 07:22:19 [id number] TAMICA Kwan, [facility] [place] [address] [place] [address] 07/06/2007 07:48:50 05/02/2008 02:02:29 [id number] [facility] - [address] [place] [address] 07/06/2007 00:00:00 05/02/2008 02:02:29 [id number] Rosalinda Wallace NP , [facility] [place] [address] [place] [address] 07/19/2007 14:53:24 05/02/2008 02:02:29 [id number] TAMICA Kwan, [facility] [place] [address] [place] [address] 08/05/2007 07:51:35 05/02/2008 02:02:29 [id number] MD KENNEDY Dai, [facility], [address] [place] [address] 11/26/2007 09:31:45 05/02/2008 02:02:29 [id number] [facility] [place] [address] [place] [address] 11/28/2007 08:02:33 11/28/2007 08:02:42 [id number] TAMICA Kwan, [facility] [place] [address] [place] [address] 12/06/2007 14:00:31 05/02/2008 02:02:29 [id number] [facility] - [address] [place] [address] 01/18/2008 11:23:18 01/18/2008 11:23:28 [id number] TAMICA Kwan, [facility] [place] [address] [place] [address] 02/03/2008 15:22:19 05/02/2008 02:02:29 [id number] TAMICA Kwan, [facility], [address] [place] [address] 08/11/2008 12:08:04 08/16/2008 11:54:16 [id number] Rosalinda Wallace NP , [facility] [place] [address] [place] [address] [place] [address] 09/28/2008 10:58:24 10/01/2008 08:12:11 [id number] Bhupendra Perkins, OD [facility], [address] [place] [address] 08/22/2008 08:32:49 08/22/2008 11:53:17 [id number] [facility] - [address] [place] [id number] 08/22/2008 10:15:20 08/22/2008 10:15:27 [id number] [facility] - [address] [place] [address] 09/20/2008 12:03:21 09/20/2008 12:03:33 [id number] [facility] - [address] [place] [address] 10/17/2008 07:43:18 10/17/2008 07:43:24 [id number] Rosalinda Wallace NP , [facility], [address] [place] [address] 09/30/2009 15:27:57 10/01/2009 09:46:35 [id number] Rosalinda Wallace NP , [address] [place] [address] 10/06/2010 14:57:18 10/06/2010 15:48:40 [id number] MD KENNEDY Murillo III, [address] [place] [address] 12/25/2011 15:01:06 12/25/2011 16:39:14 [id number] Heriberto Fontaine MD Rheumatol ogy, [address] [place] [address] 03/10/2012 14:03:39 03/14/2012 10:21:17 [id number] Ludin Perdomo III, MD , [facility], [address] [place] [address] 03/25/2012 07:45:17 03/25/2012 08:22:44 [id number] Ludin Perdomo III, MD , [address] [place] [address] 04/22/2012 14:58:44 04/22/2012 15:23:48 [id number] MD KENNEDY Murillo III, [address] [place] [address] 11/08/2012 07:59:42 11/08/2012 08:45:46 [id number] Ludin Perdomo III, MD , [address] [place] [address] 01/09/2013 15:03:45 01/09/2013 16:11:29 [id number] Ludin Perdomo III, MD , [address] [place] [address] 07/11/2013 07:11:32 07/11/2013 08:12:43 [id number] TAMICA Kwan, [address] [place] [address] 01/12/2014 08:08:49 01/12/2014 09:20:09 [id number] TAMICA Kwan, [address] [place] [address] 08/08/2014 07:40:34 08/08/2014 08:16:03 [id number] KVNG Vincent, [address] [place] [address] 01/09/2015 13:15:04 01/09/2015 13:41:06 [id number] TAMICA Kwan, [address] [place] [address] 08/28/2015 16:01:12 08/28/2015 16:44:28 [id number] Essence BENAVIDES, [address] [place] [address] 10/23/2015 11:06:53 10/25/2015 12:22:48 [id number] Essence BENAVIDES, [address] [place] [address] 03/10/2016 14:29:50 03/10/2016 14:47:11 [id number] Essence BENAVIDES, [address] [place] [address] 09/16/2016 14:58:18 09/16/2016 15:33:05 [id number] Essence Koch D.O. [facility] OFFICE [address] [place] [address] [place] [address] 03/24/2017 15:38:13 03/24/2017 16:33:19 [id number] Romy Min MD [facility], [facility] [address] [place] [address] 07/06/2017 06:34:23 07/06/2017 12:23:30 [id number] Essence Jonathanlo D.O. [address] [place] [address] 11/26/2017 09:24:09 11/26/2017 10:27:38 [id number] Essencebello Castillolo D.O. [address] [place] [id number] 03/07/2018 08:19:28 03/07/2018 08:35:13 [id number] Essence Coleman.OSlade [address] [place] [address] 1 02/15/2019 14:59:41 02/15/2019 15:50:16 [id number] GEOVANNI Ayoub [address] [place] [id number] 1 08/21/2019 08:05:32 08/21/2019 15:44:30 [id number] GEOVANNI Ayoub [address] [place] [id number] 1 02/29/2020 11:10:52 02/29/2020 16:08:42 [id number] Justin [place] MD [address] [place] [address] 09/12/2020 08:18:56 09/12/2020 08:47:50 [id number] Justin Washington MD [address] [place] [address] 03/21/2021 10:55:50 03/21/2021 15:12:41 [id number] Justin Washington MD [address] [place] [address] 04/18/2021 11:06:16 04/18/2021 11:41:07 [id number] Mehreen Estradatony . , [facility] [place] [address] [place] [address] 09/22/2021 07:49:40 09/22/2021 08:37:33 [id number] Mehreen Oorscorochelle . MD BENAVIDES, [facility] [place] [address] [place] [address] 03/23/2022 15:08:04 03/23/2022 16:22:37 [id number] Mehreen Estradatony . , [facility] [place] [address] [place] [address] 09/30/2022 15:04:22 10/07/2022 09:41:20 [id number] Vira Desai MD , [facility] [place] [address] [place] [address] 11/16/2023 13:05:07 11/16/2023 15:08:11 [id number] Justin [place] MD , [facility] [place] [address] [place] [address] 05/16/2024 11:17:33 05/18/2024 10:12:03 [id number] Justin Washington MD , [facility] [place] [address] [place] [address] 08/15/2024 08:00:42 08/15/2024 10:18:25 [id number] Romy Min MD [facility] , [facility] [address] [place] [address] 09/20/2024 09:21:12 09/20/2024 14:07:14 Health Concerns Section Related Observation LastModified by Organization Detai ls LastModified Time None Recorded Concern Status LastModified by Organization Details LastModified Time None Recorded Advance Directives Directive N: given 09/30/09 Payers Insurance Date Sequence Insurance Name Policy Number Policy Castañeda Covered Member ID Castañeda Member ID Guarantor Name 09/28/2024 2 [facility] - PL[facility] 1 (MEDICARE SUPPLEMENT) [id number] Romy Bailey [id number] Romy Bailey 08/27/2021 2 [employer] (EPO) Karen Bailey [id number] Romy Bailey 09/06/2021 1 [facility] [id number] Karen Bailey [id number] Romy Bailey 03/22/2007 1 [facility] [id number] Karen Bailey [id number] Romy Bailey 09/02/2021 1 [place] Karen Bailey [id number] Romy Bailey 09/20/2024 1 [place] [employer] Romy Bailey [id number] Romy Bailey
--- NOTE | 2024-09-29 14:04 | HO.NEPHOV ---
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 He monitors his blood pressure closely at home. He has no headache, visual disturbances, chest pain, shortness of breath, paroxysmal nocturnal dyspnea, orthopnea, pedal edema.He has not had any gout exacerbations and denies taking NSAID's. He has a new diagnosis of enlarged prostate with high PSA.He did not have any other systemic symptoms at the time of this office visit. COUNTS INCLUDE 234 BEDS AT [facility] Medical History (Updated 08/30/24 @ 22:23 by Catracho Verma MD) Hypertension Surgical History H/O tooth extraction H/O eye surgery History of tonsillectomy Family History Father Stroke Mother Heart attack Solitary kidney, acquired Social History Alcohol intake: current Patient Tobacco Use Status: Former Tobacco user Review of Systems Const All systems reviewed & are unremarkable except as noted in HPI and below Physical Exam Vital Signs: Last Vital Signs Pulse 80 09/29/24 14:06 BP 110/60 09/29/24 14:06 Pulse Ox 96 09/29/24 14:06 Oxygen Delivery Method Room Air 09/29/24 14:06 BMI result Body Mass Index 29.0 Const General: comfortable and no acute distress Orientation/consciousness: patient oriented x3 HEENT Head: Yes normocephalic Mouth: Normal oral and palatal mucosa present Eyes EOM: EOMs intact bilaterally Neck Neck: Yes supple Resp Auscultation: clear to auscultation bilaterally Cardio Jugular venous distension: no JVD Rate: regular rate GI Palpation (GI): Soft to palpation Auscultation: normal bowel sounds General: Yes no CVA tenderness Back/Spine/Pelvis Back: no CVA tenderness Skin General skin exam: no rashes or lesions noted Neuro General: patient oriented x3 and moves all extremities Extrem General: Yes no pedal edema Results Reviewed Nephrology Results: Hgb, (14.0-18.0) 14.0 g/dl 08/30/24 WBC, (4.8-10.8) 9.0 X10*3/uL 08/30/24 Plt Count, (160-400) 270 X10*3/uL 08/30/24 Sodium, (135-145) 138 mmol/L 08/30/24 Potassium, (3.3-5.1) 4.7 mmol/L 08/30/24 Chloride, (96-108) 106 mmol/L 08/30/24 Carbon Dioxide, (22-29) 24 mmol/L 08/30/24 BUN, (9-16) 34 mg/dL H 08/30/24 Creatinine, (0.5-1.4) 1.37 mg/dL 08/30/24 Calcium, (8.4-10.2) 9.9 mg/dL 08/30/24 Phosphorus, (2.7-4.5) 3.7 MG/DL 05/17/19 Urine Protein, (Neg-Trace) Negative mg/dL 08/30/24 Urine Creatinine 100.79 mg/dL 08/30/24 Protein/Creatinin Ratio, (<0.2) 0.09 08/30/24 Renal US 09/12/24 Assessment & Plan Assessment & Plan (1) Hypertension: Code(s): I10 - Essential (primary) hypertension Category: Medical Qualifiers: Hypertension type: primary hypertension Qualified Code(s): I10 - Essential (primary) hypertension (2) BENNY (acute kidney injury): Code(s): N17.9 - Acute kidney failure, unspecified Category: Medical Plan Donny has longstanding hypertension and may be having mild CKD from it. He recently developed BENNY with hyperkalemia associated tubular injury. Given rise in PSA, we ruled out hydro . I did not make any medications today. He maintains a low-sodium diet and is fairly active. He should maintain good hydration.Further management is pending evolving data. All questions answered. Follow-up given. Orders: Orders Creatinine 6 Months I10 - Essential (primary) hypertension Blood Urea Nitrogen 6 Months I10 - Essential (primary) hypertension Electrolytes 6 Months I10 - Essential (primary) hypertension Medications: New lisinopril 10 mg (1/2 x 20 mg) PO DAILY 90 tabs 3RF Changed From lisinopril 10 mg (1/2 x 20 mg) PO DAILY 90 tabs 3RF To lisinopril 10 mg PO DAILY 90 tabs 3RF From chlorthalidone 12.5 mg PO DAILY To chlorthalidone 12.5 mg PO DAILY 90 tabs 3RF Coding Level of Care Code Est Pt Level 4 (52321) Diagnoses Primary hypertension I10 Hypertension type: primary hypertension BENNY (acute kidney injury) N17.9
[2024-09-29 14:06] VITALS: BP 110/60; PULSE 80; O2SAT 96; BMI 29.0
== END 2024-09-29 14:31 | disposition home or self-care (01) ==
LOC: HO.HKA 13:58
PROVIDERS: Visit Provider Internal Medicine Nephrology
DX: I10 Essential (primary) hypertension (principal); N17.9 Acute kidney failure, unspecified
CPT/HCPCS: 99214

== ENCOUNTER → 2024-09-29 13:58 | Outpatient (BNVA) | payer MEDICARE, OTHER, SELFPAY | PROVIDERS: Visit Provider Internal Medicine Nephrology | DX: I10 Essential (primary) hypertension (principal); N17.9 Acute kidney failure, unspecified | CPT/HCPCS: 99212 ==

== ENCOUNTER 2025-03-30 09:59 | Outpatient (AMB) | payer MEDICARE, OTHER, SELFPAY ==
--- NOTE | 2025-03-30 10:05 | HO.NEPHOV_ITS ---
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 He monitors his blood pressure closely at home. He has no headache, visual disturbances, chest pain, shortness of breath, paroxysmal nocturnal dyspnea, orthopnea, pedal edema.He has not had any gout exacerbations and denies taking NSAID's. He has H/O enlarged prostate with high PSA & is diagnosed with prostate ca & is going to have radical prostatectomy..He did not have any other systemic symptoms at the time of this office visit. [facility], [facility] Medical History (Updated 08/30/24 @ 22:23 by Catracho Verma MD) Hypertension Surgical History H/O tooth extraction H/O eye surgery History of tonsillectomy Family History Father Stroke Mother Heart attack Solitary kidney, acquired Social History Alcohol intake: current Patient Tobacco Use Status: Former Tobacco user Review of Systems Const All systems reviewed & are unremarkable except as noted in HPI and below Physical Exam Vital Signs: Last Vital Signs Pulse 86 03/30/25 10:08 BP 120/70 03/30/25 10:08 Pulse Ox 96 03/30/25 10:08 Oxygen Delivery Method Room Air 03/30/25 10:08 BMI result Body Mass Index 28.9 Const General: comfortable and no acute distress Orientation/consciousness: patient oriented x3 HEENT Head: Yes normocephalic Mouth: Normal oral and palatal mucosa present Eyes EOM: EOMs intact bilaterally Neck Neck: Yes supple Resp Auscultation: clear to auscultation bilaterally Cardio Jugular venous distension: no JVD Rate: regular rate Heart sounds: Murmur heart sound present GI Palpation (GI): Soft to palpation Auscultation: normal bowel sounds General: Yes no CVA tenderness Back/Spine/Pelvis Back: no CVA tenderness Skin General skin exam: no rashes or lesions noted Neuro General: patient oriented x3 and moves all extremities Extrem General: Yes no pedal edema Assessment & Plan Assessment & Plan (1) Hyperuricemia: Code(s): E79.0 - Hyperuricemia without signs of inflammatory arthritis and tophaceous disease Category: Medical (2) Hypertension: Code(s): I10 - Essential (primary) hypertension Category: Medical Qualifiers: Hypertension type: primary hypertension Qualified Code(s): I10 - Essential (primary) hypertension Plan Donny has longstanding hypertension and may be having mild CKD from it . I did not make any medications today. He maintains a low-sodium diet and is fairly active. He should maintain good hydration.Further management is pending evolving data. All questions answered. Follow-up given. Orders: Orders Creatinine 6 Months E79.0 - Hyperuricemia without signs of inflammatory arthritis and tophaceous disease, I10 - Essential (primary) hypertension Blood Urea Nitrogen 6 Months E79.0 - Hyperuricemia without signs of inflammatory arthritis and tophaceous disease, I10 - Essential (primary) hypertension Calcium 6 Months E79.0 - Hyperuricemia without signs of inflammatory arthritis and tophaceous disease, I10 - Essential (primary) hypertension Uric Acid 6 Months E79.0 - Hyperuricemia without signs of inflammatory arthritis and tophaceous disease, I10 - Essential (primary) hypertension Electrolytes 6 Months E79.0 - Hyperuricemia without signs of inflammatory arthritis and tophaceous disease, I10 - Essential (primary) hypertension Medications: Discontinued allopurinol Discontinued Reason: Duplicate 300 mg PO DAILY 90 tabs 4RF Coding Level of Care Code Est Pt Level 4 (70860) Diagnoses Hyperuricemia E79.0 Primary hypertension I10 Hypertension type: primary hypertension
[2025-03-30 10:08] VITALS: BP 120/70; PULSE 86; O2SAT 96; BMI 28.9
--- OUTSIDE RECORDS SUMMARY | 2025-03-30 11:08 | XMS_ITS | Clinical Summary ---
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
--- OUTSIDE RECORDS SUMMARY | 2025-03-30 11:08 | XMS_ITS | Encounter Summary ---
Author Organization [facility] Address [address] [place] [address] Care Team Providers Care Forestry Faculty Member Name Role Phone Efrain Lewis TAMICA Primary Care Provider [phone] Encounter Details Date Type Department Care Team (Late st Contact Info) Description 12/25/2024 Lab Requisition [facility] - Main Lab [address] [facility] [place] [address] Michael Regan MD [address] [phone] Elevated prostate specific antigen (PSA) Social History Tobacco Use Types Packs/Day Years Used Date Smoking Tobacco: Never Assessed Sex and Gender Information Value Date Recorded Sex Assigned at Not on file Legal Sex Male 12:49 PM EDT Gender Identity Not on file Sexual Orientation Not on file documented as of this encounter Plan of Treatment Not on file documented as of this encounter Procedures Procedure Name Priority Date/Time Associated Diagnosis Comments TISSUE EXAM Routine 12/21/2024 Elevated prostate specific antigen (PSA) documented in this encounter Results * Tissue Exam (12/21/2024) Addendum Block N1 was sent to [facility] (CLIA [id number]), [place], [place] for Decipher Prostatic Biopsy Genomic Compensation And Benefits Analyst at the request of Michael Regan MD. Their diagnosis is as follows: Decipher Genomic Risk Results: Genomic Risk: 0.52 Decipher Genomic Risk Group is: INTERMEDIATE Signed by: Kristyn Benitez MD Report date: 01/11/2025 at 15:19 PDT (Full report scanned on file) 11:07 AM EDT [facility] Addendum electronically signed by Mac Arcos MD on 01/15/2025 at 1107 EDT Final Diagnosis A. Prostate, Right Medial Base: Benign prostate tissue. B. Prostate, Right Medial Mid: Benign prostate tissue. C. Prostate, Right Medial Geraldine: Benign prostate tissue. D. Prostate, Right Lateral Base: Benign prostate tissue. E. Prostate, Right Lateral Mid: Benign prostate tissue. F. Prostate, Right Lateral Geraldine: Prostatic intraepithelial neoplasia, high grade (HG-PIN). Note: On hematoxylin and eosin-stained sections, a population of expanded glands containing cells with amphophilic cytoplasm and nuclear enlargement. A multiplex immunohistochemical study including AMACR, high molecular weight cytokeratin and p63 was performed to further characterize epithelium in these glands. The glands of interest exhibit granular cytoplasmic expression of AMACR and demonstrate an associated basal cell layer. Although many of the adjacent glands show a similar pattern of AMACR reactivity, and the combined cytologic and immunohistochemical findings in the glands of interest are considered sufficient for a diagnosis of high grade PIN. G. Prostate, Left Medial Base: Benign prostate tissue. H. Prostate, Left Medial Mid: Benign prostate tissue. I. Prostate, Left Medial Geraldine: Atypical small acinar proliferation. Note: On hematoxylin and eosin-stained sections, rare small glands with pale amphophilic cytoplasm and associated with blue mucin. A multiplex immunohistochemical study including AMACR, high molecular weight cytokeratin and p63 was performed to further characterize epithelium in these glands. The glands of interest show granular cytoplasmic expression of AMACR and lack an associated basal cell layer. These findings are atypical; however, there are only rare glands and the findings are not considered sufficient for a diagnosis of adenocarcinoma. J. Prostate, Left Lateral Base: Benign prostate tissue. K. Prostate, Left Lateral Mid: Benign prostate tissue. L. Prostate, Left Lateral Geraldine: Atypical small acinar proliferation. Note: On hematoxylin and eosin-stained sections, a population of crowded glands of indeterminate nature is identified. A multiplex immunohistochemical study including AMACR, high molecular weight cytokeratin and p63 was performed to further characterize the proliferation of small glands. The glands of interest show faint granular cytoplasmic expression of AMACR and lack an associated basal cell layer. The lack of associated basal cells coupled with AMACR expression is supports interpretation as an atypical small acinar proliferation. M. Prostate, Left Anterior Transition Zone Mid to Geraldine: Benign prostate tissue. N. Prostate, Right Base Anterior Transition Zone to Mid: Acinar adenocarcinoma, conventional type, Markus score 3 + 4 = 7 (Grade group 2). Chatham pattern 4 comprises approximately 10% of the carcinoma (rare small cribriform glands). The carcinoma involves two of two tissue cores and approximately 10-15% of the tissue submitted for review and spans approximately 2 mm in greatest dimension in one core and one mm in greatest dimension in the other core. Note: On hematoxylin and eosin-stained sections, foci adenocarcinoma was identified in one tissue core and a focus suspicious for adenocarcinoma was identified in the second tissue core. A multiplex immunohistochemical study including AMACR, high molecular weight cytokeratin and p63 was performed to help determine the extent of carcinoma. The glands of interest show intense granular cytoplasmic expression of AMACR and lack an associated basal cell layer, supporting a diagnosis of adenocarcinoma in both tissue cores. 5 11:07 AM EDT [facility] at 1213 EDT Comment Learning Support Services Director slide(s) from this case have been presented at Anatomic Pathology Intradepartmental Review Conference on 12/27/24. 5 11:07 AM EDT [facility] Clinical Information Elevated PSA PSA level: 8.01 5 11:07 AM EDT [facility] Gross Description A. Prostate, Right Medial Base: Labeled right medial base . Received in formalin is a 1.5 x 0.1 cm bullock-white soft tissue core which is submitted in toto between sponges in one cassette, one piece, x 4. B. Prostate, Right Medial Mid: Labeled right medial mid . Received in formalin is a 1.3 x 0.1 cm bullock-white soft tissue core which is submitted in toto between sponges in one cassette, one piece, x 4. C. Prostate, Right Medial Geraldine: Labeled right medial apex . Received in formalin is a 1.3 x 0.1 cm bullock-white soft tissue core which is submitted in toto between sponges in one cassette, one piece, x 4. D. Prostate, Right Lateral Base: Labeled right lateral base . Received in formalin is a 1.1 x 0.1 cm bullock-white soft tissue core which is submitted in toto between sponges in one cassette, one piece, x 4. E. Prostate, Right Lateral Mid: Labeled right lateral mid . Received in formalin is a 0.9 x 0.1 cm bullock-white soft tissue core which is submitted in toto between sponges in one cassette, one piece, x 4. F. Prostate, Right Lateral Geraldine: Labeled right lateral apex . Received in formalin is a 0.9 x 0.1 cm bullock-white soft tissue core which is submitted in toto between sponges in one cassette, one piece, x 4. G. Prostate, Left Medial Base: Labeled left medial base . Received in formalin is a 1.3 x 0.1 cm bullock-white soft tissue core which is submitted in toto between sponges in one cassette, one piece, x 4. H. Prostate, Left Medial Mid: Labeled left medial mid . Received in formalin is a 1.6 x 0.1 cm bullock-white soft tissue core which is submitted in toto between sponges in one cassette, one piece, x 4. I. Prostate, Left Medial Geraldine: Labeled left medial apex . Received in formalin is a 1.6 x 0.1 cm bullock-white soft tissue core which is submitted in toto between sponges in one cassette, one piece, x 4. J. Prostate, Left Lateral Base: Labeled left lateral base . Received in formalin is a 1.2 x 0.1 cm bullock-white soft tissue core which is submitted in toto between sponges in one cassette, one piece, x 4. K. Prostate, Left Lateral Mid: Labeled left lateral mid . Received in formalin is a 1.3 x 0.1 cm bullock-white soft tissue core which is submitted in toto between sponges in one cassette, one piece, x 4. L. Prostate, Left Lateral Geraldine: Labeled left lateral apex . Received in formalin is a 1.2 x 0.1 cm bullock-white soft tissue core which is submitted in toto between sponges in one cassette, one piece, x 4. M. Prostate, Left Anterior Transition Zone Mid to Geraldine: Labeled left anterior transition zone mid to apex . Received in formalin are two bullock-white soft tissue cores, each measuring approximately 1.5 x 0.1 cm, which are submitted in toto between sponges in one cassette, two pieces, x 4. N. Prostate, Right Base Anterior Transition Zone to Mid: Labeled right anterior transition zone to mid . Received in formalin are two bullock-white soft tissue cores, each measuring approximately 1.7 x 0.1 cm, which are submitted in toto between sponges in one cassette, two pieces, x 4. MARGO 11:07 AM EDT [facility] Disclaimer NOTE: The immunohistochemical tests and in situ hybridization tests were developed and their performance characteristics were determined by [facility]. They have not been cleared or approved by the U.S. Food and Drug Administration. The FDA has determined that such clearance or approval is not necessary. These tests are used for clinical purposes. They should not be regarded as investigational or for research. This laboratory is certified under the Clinical Laboratory Improvement Amendments of 1988 (CLIA) as qualified to perform high complexity clinical laboratory testing. (controls appropriate) Unless otherwise specified, all tissue is 10% NB formalin fixed and paraffin embedded. 11:07 AM EDT [facility] Tissue Prostate / Unknown 12/21/20242024 1:01 PM EDT Tissue specimen (specimen) Prostate / Unknown 12/21/2024 12/25/2024 1: 01 PM EDT Tissue specimen (specimen) Prostate / Unknown 12/21/2024 12/25/2024 1: 01 PM EDT Tissue specimen (specimen) Prostate / Unknown 12/21/2024 12/25/2024 1: 01 PM EDT Tissue specimen (specimen) Prostate / Unknown 12/21/2024 12/25/2024 1: 01 PM EDT Tissue specimen (specimen) Prostate / Unknown 12/21/2024 12/25/2024 1: 01 PM EDT Tissue specimen (specimen) Prostate / Unknown 12/21/2024 12/25/2024 1: 01 PM EDT Tissue specimen (specimen) Prostate / Unknown 12/21/2024 12/25/2024 1: 01 PM EDT Tissue specimen (specimen) Prostate / Unknown 12/21/2024 12/25/2024 1: 01 PM EDT Tissue specimen (specimen) Prostate / Unknown 12/21/2024 12/25/2024 1: 01 PM EDT Tissue specimen (specimen) Prostate / Unknown 12/21/2024 12/25/2024 1: 01 PM EDT Tissue specimen (specimen) Prostate / Unknown 12/21/2024 12/25/2024 1: 01 PM EDT Tissue specimen (specimen) Prostate / Unknown 12/21/2024 12/25/2024 1: 01 PM EDT Tissue specimen (specimen) Prostate / Unknown 12/21/2024 12/25/2024 1: 01 PM EDT Michael Regan MD LAB PATHOLOGY ORDERABLES Edited Result - Final [facility] [address] [place] [address], documented in this encounter Visit Diagnoses Diagnosis Elevated prostate specific antigen (PSA) documented in this encounter Care Teams Forestry Faculty Member Relationship Specialty Start Date End Date Efrain Lewis NP [address] [place] [address] [address] [place] [address] PCP - General Family Medicine 12/26/24 documented as of this encounter
--- OUTSIDE RECORDS SUMMARY | 2025-03-30 11:08 | XMS_ITS | Clinical Summary ---
Author Organization [facility] Address [address] [place] [address] Phone Care Team Providers Care News Intern Name Role Phone Efrain Lewis NP Primary Care Provider [phone] Luanne Clay MD, MPH Unavailable [phone] Bayron Herrera MD Unavailable [phone] Zana Hubbard MD Unavailable Allergies No known active allergies Medications atorvastatin (LIPITOR) 20 MG tablet Take 20 mg by mouth daily. Active lisinopril (PRINIVIL,ZESTRI L) 10 MG tablet Take 10 mg by mouth daily. Active chlorthalidone 12.5 mg Tab Take 12.5 mg by mouth daily. Active allopurinol (ZYLOPRIM) 100 MG tablet Take 200 mg by mouth daily. Active metoprolol succinate 25 mg CSpX Take 25 mg by mouth daily. Active Active Problems Problem Noted Date Diagnosed Date Adenocarcinoma of prostate 02/17/2025 Cancer Staging:Clinical: cT1c, cN0, PSA: 8, Grade Group: 2 - Signed by Luanne Clay MD, MPH on 02/17/2025 Encounters Date Type Department Care Team Description 03/18/2025 Orders Only [facility] [address] [place] [address] Bayron Herrera MD Cancer of prostate (Primary Dx) 02/27/2025 Orders Only [facility] [address] [facility] [address] [place] [address] Sandee Ospina Cancer of prostate (Primary Dx) 02/27/2025 Prep for Surgery Primary [facility] [address] [place] [address] Bayron Herrera MD Adenocarcinoma of prostate (Primary Dx); Unspecified symptoms and signs involving the genitourinary system 02/19/2025 1:45 PM EST Office Visit [facility], [facility] at [address] [address] Bayron Herrera MD Prostate cancer (Primary Dx) 02/19/2025 9:00 AM EST Office Visit [facility], [facility] at [address] [address] Luanne Clay MD, MPH Adenocarcinoma of prostate (Primary Dx) 02/19/2025 7:30 AM EST Office Visit [facility], [facility] at [address] [address] Zana Hubbard MD Prostate cancer (Primary Dx) 01/24/2025 3:27 PM EDT - 01/24/2025 11:59 PM EDT Hospital Encounter [facility], [address] [address] Discharge Disposition: Home or Self Care 01/15/2025 Ancillary Orders [facility] OUTSIDE IMG [address] [place] [address] Zana Hubbard MD 01/11/2025 Orders Only [facility], [facility] [address], [address] [place] [address] Zana Hubbard MD Prostate cancer (Primary Dx) from Last 3 Months Family History Medical History Relation Comments CV disease Father 2 Stroke Father 2 CV disease Mother 2 Relation Status Comments Father 1 Father 2 Mother 1 Mother 2 Social History Tobacco Use Types Packs/Day Years Used Date Smoking Tobacco: Never Assessed Child or Family Care Answer Date Record ed Do you have problems with on e of the following making it difficult for you to work, study, or receive health care? No 02/12/2025 Education Answer Date Recorded Are you interested in more education? Not on alexander e 08/07/2022 Are you concerned about learning? Not on file 08/07/2022 No 08/07/2022 No 08/07/2022 Food Answer Date Recorded Within the past 6 months we worried whether our food would run out before we got money to buy more. Never True 02/12/2025 Within the past 6 months the food we bought just didn't last and we didn't have enough money to get more. Never True Residential Stability Answer Date Recor ded What is your housing situation today? I have gertrude sing 02/12/2025 How many times have you move d in the past 12 months? Zero (I did not move) 02/12/2025 Paying for Meds Answer Date Recorded Do you have trouble paying for medicines? No 02/12/2025 Paying Utility Bills Answer Date Record ed Do you have trouble paying your heating or elect ricity bill? No 02/12/2025 Transportation Answer Date Recorded Has the lack of transportati on kept you from medical appointments or from getting medications? No 02/12/2025 Digital Access Answer Date Recorded No 09/07/2022 No 09/07/2022 Reliable internet access at home? Not on file 09/07/2022 Device with a working camera? Not on file Sex and Gender Information Value Date Recorded Sex Assigned at Male 01/10/2025 2:14 PM EDT Legal Sex Male 3:41 PM EDT Gender Identity Male 01/10/2025 2:14 PM EDT Sexual Orientation Straight 01/10/2025 2: 14 PM EDT Last Filed Vital Signs Vital Sign Reading Time Taken Comments Blood Pressure 148/87 02/19/2025 7:10 AM EST Pulse 74 02/19/2025 7:10 AM EST Temperature 36.2 C (97.2 F) 02/19/2025 7:10 AM EST Respiratory Rate 16 02/19/2025 7:10 AM EST Oxygen Saturation 99% 02/19/2025 7:10 AM EST Inhaled Oxygen Concentration - - Weight 95.9 kg (211 lb 6.7 oz) 02/19/2025 7:10 A M EST Height 180.9 cm (5' 11.22 ) 02/19/2025 7:[address] Body Mass Index 29.31 02/19/2025 7:10 AM EST Plan of Treatment Upcoming Encounters Date Type Department Care Team (Latest Contact Info) Description 04/10/2025 11:20 AM EST Pre-Admission Testing [address] [address] Bayron Herrera MD [address] [place] [address] 04/24/2025 Procedure Pass [facility] Periop 1st [address] [place] [address] 04/24/2025 7:30 AM EST Hospital Encounter [facility] Peri 1st [address] [place] [address] Bayron Herrera MD [address] [place] [address] 04/24/2025 7:30 AM EST - 04/24/2025 12:19 PM EST Surgery [address] [address] Bayron Herrera MD [address] [place] [address] [email or web address] ROBOTIC LAPAROSCOPIC PROSTATECTOMY RADICAL Scheduled Procedures Name Priority Associated Diagnoses Date/Ti wa ROBOTIC LAPAROSCOPIC PROSTATECTOMY RADICAL Adenocarcinoma of prostate 04/24/2025 7:30 AM EST EXCISION LYMPH NODE Adenocarcinoma of prostate 04/24/2025 7:30 AM EST Health Maintenance Due Date Last Done Comments CREATININE LEVEL 1956 LIPID PANEL 1956 POTASSIUM LEVEL 1956 DEPRESSION SCREENING 1968 SMOKING Hx and SMOKELESS TOBACCO SCREENING 1969 HEPATITIS C SCREENING 1974 SCREENING FOR DIABETES 07/26/1991 COLOGUARD 2001 FIT TEST 2001 FOBT 2001 SIGMOIDOSCOPY 2001 VIRTUAL COLONOSCOPY 2001 COVID-19 VACCINE ( season) 2025 01/24/2025, 01/17/2024, 01/07/2023, Additional history exists Adult Td,Tdap Booster 08/27/2025 08/28/2015, 007 RSV VACCINE (1 - 1-dose 75+ series) 07/26/2031 COLONOSCOPY 09/20/2034 09/20/2024 COLORECTAL CANCER SCREENING 09/20/2034 ZOSTER VACCINES Completed 04/02/2020, 12/12, 12/15/2019, Additional history exists PNEUMOCOCCAL VACCINES (50+ years) Completed 04/22/2022 INFLUENZA VACCINE Completed 01/24/2025, , 01/07/2023, Additional history exists HEPATITIS A VACCINES Aged Out No long er eligible based on patient's age to complete this topic HIB VACCINES Aged Out No longer eligi ble based on patient's age to complete this topic MENINGOCOCCAL VACCINES (ACWY) Aged Out No longer eligible based on patient's age to complete this topic MENINGOCOCCAL VACCINES (B) Aged Out N o longer eligible based on patient's age to complete this topic Goals Goal Patient Goal Type Associated Problems Recent Progress Patient-Stated? Author Autogenerat ed Goal Care Plan Autogenerated Problem No [place], [employer] Not on file Procedures Procedure Name Priority Date/Time Associated Diagnosis Comments COLONOSCOPY FOR RESULT ENTRY ONLY Routine 09/20/2024 from Last 3 Months or Most Recently Relevant to Health Maintenance Results * COLONOSCOPY FOR RESULT ENTRY ONLY (09/20/2024) Colonoscopy External us Historical Provider MD HEALTH MAINTENANCE Final Result from Last 3 Months or Most Recently Relevant to Health Maintenance Additional Health Concerns Active Problems Noted Date Diagnosed Date Autogenerated Problem 02/27/2025 Insurance MEDICARE PART A & B MEDICARE SUPPLEMENT MEDICARE PART A & B MEDICARE SUPPLEMENT MEDICARE PART A & B Member Subscriber Plan / Payer (Ef fective 2021-) Name:Donny Bailey Member ID:[id number] Relation to Subscriber:Self Name:Donny Bailey Subscriber ID:[id number] Payer ID:[id number] Group ID:Not on file Type:Medicare Address: [employer] [address] MEDICARE SUPPLEMENT MEDICARE PART A & B MEDICARE SUPPLEMENT MEDICARE PART A & B MEDICARE SUPPLEMENT MEDICARE PART A & B MEDICARE SUPPLEMENT MEDICARE PART A & B MEDICARE SUPPLEMENT MEDICARE PART A & [place] [address] [address] MEDICARE SUPPLEMENT MEDICARE PART A & B Member Subscriber Plan / Payer (Ef fective 2021-Present) Name:Donny Bailey Member ID:[id number] Relation to Subscriber:Self Name:Leo Donny Subscriber ID:[id number] Payer ID:[id number] Group ID:Not on file Type:Medicare Address: [employer] [facility] [address] [facility] MEDICARE SUPPLEMENT Care Teams News Intern Relationship Specialty Start Date End Date Efrain Lewis NP [address] [place] [address] [place] [address] PCP - General Nurse Practitioner 01/10/25 Luanne Clay MD, MPH [address] [place], [place] [address]- [address] [address] [email or web address] Radiation Oncology 01/10/25 Bayron Herrera MD [address] [place] [address] Urology 01/10/25 Zana Hubbard MD [address] [place] [address] [facility] [address] [place] [address] [email or web address] Medical Oncology 01/10/25 Additional Source Comments The information contained in this document represents components of the legal health record. It is not the complete legal health record.[facility]
--- OUTSIDE RECORDS SUMMARY | 2025-03-30 11:08 | XMS_ITS | Clinical Summary ---
Author Organization [address] [facility] Address [address] [place] [address] Phone Care Team Providers Care Product Development Worker Name Role Phone Efrain Lewis NP Primary Care Provider [phone] Social History Tobacco Use Types Packs/Day Years Used Date Smoking Tobacco: Never Assessed Sex and Gender Information Value Date Recorded Sex Assigned at Not on file Legal Sex Male 12:49 PM EDT Gender Identity Not on file Sexual Orientation Not on file Plan of Treatment Health Maintenance Due Date Last Done Comments Colorectal Cancer Screening: Colonoscopy 1955 DTaP,Tdap,and Td Vaccines (1 - Tdap) 07/26/1975 Pneumococcal Vaccine: 50+ Ye ars (1 of 1 - PCV) 2006 Zoster Vaccines (1 of 2) 2006 Depression Screening 04/12/2024 COVID-19 Vaccine ( - 2024-2 6 season) 2024 Influenza Vaccine (#1) 2024 Abdominal Aortic Aneurysm (A AA) Screen 12/25/2024 Cholesterol Screening (Lipid Panel) 12/25/2024 Falls Risk Assessment 12/25/2024 Hepatitis C Screening 12/25/2024 Medicare Annual Wellness Visit 12/25/2024 Social Influencers of Health Screening 12/25/2024 RSV Immunization Adult Patie nts (1 - 1-dose 75+ series) 07/26/2031 HIB Vaccines Aged Out No longer eligi ble based on patient's age to complete this topic HPV Vaccines Aged Out No longer eligi ble based on patient's age to complete this topic Hepatitis A Vaccines Aged Out No long er eligible based on patient's age to complete this topic Hepatitis B Vaccines Aged Out No long er eligible based on patient's age to complete this topic IPV Vaccines Aged Out No longer eligi ble based on patient's age to complete this topic MMR Vaccines Aged Out No longer eligi ble based on patient's age to complete this topic Meningococcal ACWY Vaccine Aged Out N o longer eligible based on patient's age to complete this topic Meningococcal B Vaccine Aged Out No l onger eligible based on patient's age to complete this topic RSV Immunization Patients Un perfecto 20 months Aged Out No longer eligible b ased on patient's age to complete this topic Varicella Vaccines Aged Out No longer eligible based on patient's age to complete this topic Insurance [facility] MEDICARE Care Teams Product Development Worker Relationship Specialty Start Date End Date Efrain Lewis NP [address] [place] [address] [address] [place] [address] PCP - General Family Medicine 12/26/24
== END 2025-03-30 10:41 | disposition home or self-care (01) ==
LOC: HO.HKA 09:59
PROVIDERS: Visit Provider Internal Medicine Nephrology
DX: E79.0 Hyperuricemia without signs of inflammatory arthritis and tophaceous disease (principal); I10 Essential (primary) hypertension
CPT/HCPCS: 99214

== ENCOUNTER → 2025-03-30 09:59 | Outpatient (BNVA) | payer MEDICARE, OTHER, SELFPAY | PROVIDERS: Visit Provider Internal Medicine Nephrology | DX: I10 Essential (primary) hypertension (principal); Z87.891 Personal history of nicotine dependence; E79.0 Hyperuricemia without signs of inflammatory arthritis and tophaceous disease | CPT/HCPCS: 99212 ==